=== PATIENT | male | born 1970 | race Caucasian/White ===

== ENCOUNTER 2016-06-15 20:26 | Inpatient (IN) | payer OTHER ==
[~2016-06-15] VITALS: Ht 172.7 cm; Wt 72.6 kg
[~2016-06-15 20:26] MED LIST: ADVAIR DISKUS 21 DSK INH; ALPRAZOLAM1 MG PO; AUGMENTIN 500M500 MG PO; CETIRIZINE HCL10 MG PO; CLOPIDOGREL75 MG PO; COUMADIN 10 MG10 MG PO; COUMADIN 2.5 M2.5 MG PO; COUMADIN10 MG PO; COUMADIN7.5 MG PO; CRESTOR40 MG PO; ENDOCET 325 MG-1 TA1 PO; FLEXERIL10 MG PO; FLOMAX(MONOGRA0.4 MG PO; LIDODERM 5% PAT1 PAT TOP; LOPRESSOR 25MG25 MG PO; NICODERM C14 MG/24 H TD; NICOTINE T7 MG/24 HR TOP; NICOTINE TOP; OXYCODONE5 M1 PO; PERCOCET 325 MG-5 MG PO; PERCOCET 325 MG1 TA2 PO; PRILOSEC 20MG C20 MG PO; PRINIVIL 5MG5 MG PO; ZANAFLEX4 MG PO; ZESTRIL2.5 MG PO
--- NOTE | 2016-06-15 21:01 | NUR ---
PT TO ED FOR INTERMITTENT CP X "A FEW WEEKS" PT HAS SIG HX FOR 4 AK'S, ONE VFIB ARREST IN 2013 AND 5 STENTS. PT REPORTING CP HAS BECOME MORE FREQUENT OVER PAST FEW WEEKS, NOT IMPROVING WITH NITRO "AND IT FEELS DIFFERENT THAN MY NORMAL ANGINA"
--- NOTE | 2016-06-15 21:18 | NUR ---
PT BROUGHT TO RM 9, CHANGED INTO HOSPITAL GOWN AND PUT ON THE MONITOR.
--- NOTE | 2016-06-15 21:25 | ED CARDIAC/CP/PALPITATIONS ---
History of Present Illness General Chief Complaint: Chest Pain Stated Complaint: CHEST PAIN ON AND OFF COUPLE WEEKS PER PT Source: patient, old records Exam Limitations: no limitations Vital Signs & Intake/Output Vital Signs & Intake/Output Vital Signs Date Time Temp Pulse Resp B/P B/P Pulse O2 O2 Flow FiO2 Mean Ox Delivery Rate 06/16 0011 97.4 57 18 111/81 98 06/15 2324 97.2 57 18 110/63 98 06/15 2210 97.1 55 18 108/68 96 06/15 2100 97.4 54 15 111/74 100 Room Air ED Intake and Output 06/16 0000 06/15 1200 Intake Total Output Total Balance Patient 160 lb Weight Weight Reported by Patient Measurement Method Allergies Coded Allergies: Iodinated Contrast Media - Oral and (IODINATED CONTRAST MEDIA - IV DYE) (GI UPSET, VOMITING 05/03/15) Reconcile Medications Acetaminophen (Tylenol Extra Strength) 500 MG TABLET 1 TAB PO PRN PAIN ( Reported) Alprazolam 1 MG TABLET 1 TAB PO DAILY ANXIETY (Reported) Clopidogrel Bisulfate (Clopidogrel) 75 MG TABLET 1 TAB PO DAILY BLOOD THINNER (Reported) Fluticasone Propionate 50 MCG/ACTUATION SPRAY.SUSP 2 SPRAY NASB DAILY ALLERGIES (Reported) Lisinopril 5 MG TABLET 1 TAB PO DAILY BP (Reported) Metoprolol Tartrate 25 MG TABLET 1 TAB PO DAILY HEART/BP (Reported) Montelukast Sodium 10 MG TABLET 1 TAB PO DAILY ALLERGIES (Reported) Nitroglycerin 0.4 MG TAB.SUBL 1 TAB SL AD PRN CHEST PAIN (Reported) 1st sign of attack; may repeat every 5 minutes until relief; if pain persists after 3 tablets in 15 minutes, prompt medical att Oxycodone HCl/Acetaminophen (Percocet 5-325 MG Tablet) 5 MG-325 MG TABLET 1 TAB PO Q6 PRN PAIN (Reported) Rosuvastatin Calcium (Crestor) 20 MG TABLET 1 TAB PO DAILY CHOLESTEROL ( Reported) Warfarin Sodium (Coumadin) 7.5 MG TABLET 1 TAB PO DAILY BLOOD THINNER ( Reported) Core Measure Meds Pre-Hospital coumadin Triage Note: PT TO ED FOR INTERMITTENT CP X "A FEW WEEKS" PT HAS SIG HX FOR 4 CT'S, ONE VFIB ARREST IN 2012 AND 5 STENTS. PT REPORTING CP HAS BECOME MORE FREQUENT OVER PAST FEW WEEKS, NOT IMPROVING WITH NITRO "AND IT FEELS DIFFERENT THAN MY NORMAL ANGINA" Triage Nurses Notes Reviewed? yes Onset: 2 weeks Duration: week(s):, changing over time, continues in ED, intermittent Timing: recent history Quality/Severity: moderate, aching, stabbing Location: substernal Radiation: jaw, arms Activities at Onset: activity, rest Prior Chest Pain/Card Workup: angina, cardiac cath, echocardiography, heart attack Modifying Factors: Improves With: nitroglycerin, rest. Worsens With: exercise. Nitro Today/Relief: 0.4 mg x 2, provided at home, mild relief Aspirin Today: no aspirin today, Coumadin Plavix Associated Symptoms: diaphoresis, dizziness, nausea/vomiting HPI: 2 weeks prior to admission patient complains of episodic waxing and waning substernal chest pain mild to moderate severity resolved with rest and nitroglycerin accompanied with dizziness diaphoresis nausea. 1 day prior to admission pain became more severe taking longer to resolve with lesser effect of nitroglycerin. He denies fever chills vomiting diarrhea abdominal pain shortness of breath headache dysuria rash bleeding. Past History Travel History Traveled to [place] past 21 day No Medical History Any Pertinent Medical History? 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 No Review of Systems Review of Systems Constitutional: Reports: see HPI, malaise, weakness. EENTM: Reports: no symptoms. Respiratory: Reports: no symptoms. Cardiovascular: Reports: see HPI, chest pain. GI: Reports: no symptoms. Genitourinary: Reports: no symptoms. Musculoskeletal: Reports: no symptoms. Skin: Reports: no symptoms. Neurological/Psychological: Reports: no symptoms. Hematologic/Endocrine: Reports: no symptoms. Immunologic/Allergic: Reports: no symptoms. All Other Systems: Reviewed and Negative Physical Exam Physical Exam General Appearance: well developed/nourished, alert, awake, anxious, moderate distress Head: atraumatic, normal appearance Eyes: Bilateral: normal appearance, PERRL, EOMI. Ears, Nose, Throat: normal pharynx, normal ENT inspection Neck: normal inspection, supple, full range of motion, no midline tenderness Respiratory: normal breath sounds, chest non-tender, no respiratory distress, quiet respiration, lungs clear Cardiovascular: regular rate/rhythm, normal peripheral pulses, norml femoral pulses equa Peripheral Pulses: 4+ carotid (R), 4+ carotid (L) Gastrointestinal: normal bowel sounds, soft, non-tender, no organomegaly Back: normal inspection, normal range of motion Extremities: normal inspection, normal capillary refill, normal range of motion, no edema Neurologic/Psych: awake, alert, oriented x 3, normal gait, normal mood/affect, 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 Skin: intact, normal color, warm/dry Lymphatic: no anterior cervical annamaria Core Measures ACS in differential dx? Yes ASA ordered for poss ACS? No-d/t bleeding/risk of Severe Sepsis Present: No Septic Shock Present: No Progress Differential Diagnosis: AMI, costochondritis, hyperkalemia, pneumonia Plan of Care: Orders Procedure Date/time Status Nothing by Mouth 06/16 B Active TROPONIN LEVEL 06/16 1000 Active EKG 06/16 1000 Active TROPONIN LEVEL 06/16 0400 Active PROTHROMBIN TIME 06/16 0400 Active LIPID PANEL 06/16 0400 Active CBC WITHOUT DIFFERENTIAL 06/16 0400 Active BASIC ELECTROLYTES PLUS BUN&CR 06/16 0400 Active EKG 06/16 0400 Active Code Status 06/16 0000 Active Pathway - chart 06/15 2318 Active Patient Data 06/15 2256 Active OXYGEN SETUP (GEN) 06/15 2241 Active Saline Lock 06/15 224 Active Admit to inpatient 06/15 2242 Active Vital Signs 06/15 224 Active Activity/Ambulation 06/15 2241 Active Code Status 06/15 224 Complete Intake & Output 06/15 2137 Active THYROID STIMULATING HORMONE 06/150 Active FREE T4 06/15 2129 Active TROPONIN LEVEL 06/16 2119 Active PROTHROMBIN TIME 06/16 2119 Complete MAGNESIUM 06/16 2119 Active COMPREHENSIVE METABOLIC PANEL 06/16 2119 Active CBC WITHOUT DIFFERENTIAL 06/16 2119 Complete EKG 06/15 2026 Active TRC EVALUATION (GEN) 06/15 UNK Active Pathway - chart 06/15 UNK Active House Staff 06/15 UNK Active Lab Add-on Test 06/15 UNK Active VTE Mechanical Prophylaxis 06/15 UNK Active Vital Signs 06/15 UNK Active ECHOCARDIOGRAM 06/15 UNK Active Current Medications Sig/Danisha Start time Last Medication Dose Stop Time Status Admin Atorvastatin Calcium 80 MG 1700 06/17 1700 UNVr (Lipitor) Alprazolam 1 MG DAILY 06/16 1000 UNVr (Xanax) 06/23 0959 Clopidogrel Bisulfate 75 MG DAILY 06/16 1000 UNVr (Plavix) Fluticasone 2 SPRAY DAILY 06/16 1000 UNVr Propionate (Flonase) Lisinopril 5 MG DAILY 06/16 1000 UNVr (Prinivil) Metoprolol Tartrate 25 MG DAILY 06/16 1000 UNVr (Lopressor) Montelukast Sodium 10 MG DAILY 06/16 1000 UNVr (Singulair) Multivitamins 1 TAB DAILY 06/16 1000 AC (Theragran Vitamins) Nitroglycerin 0.4 MG Q 5 MINUTES X 3 DO.. 06/15 2345 UNVr (Nitrostat) Acetaminophen 650 MG Q6P PRN 06/150 AC (Tylenol) Acetaminophen/ 1 TAB Q6P PRN 06/15 2329 AC Hydrocodone Bitart (Vicodin) Morphine Sulfate 2 MG Q4P PRN 06/15 2329 AC (Morphine) Laboratory Tests 06/15/162129: Anion Gap 9, Estimated GFR > 60, BUN/Creatinine Ratio 12.5, Glucose 96, Calcium 8.9, Magnesium 2.0, Total Bilirubin 0.7, AST 23, ALT 48, Alkaline Phosphatase 40 , Troponin I < 0.01, Total Protein 6.5, Albumin 4.0, Globulin 2.5, Albumin/ Globulin Ratio 1.6, TSH Pending, Free T4 Pending, PT 30.2 H, INR 2.91 H, CBC w Diff NO MAN DIFF REQ, RBC 4.73, MCV 90.5, MCH 30.7, RDW 14.2, MPV 8.5, Gran % 52.6, Lymphocytes % 33.3, Monocytes % 10.9 H, Eosinophils % 2.2, Basophils % 1.0, Absolute Granulocytes 3.5, Absolute Lymphocytes 2.2, Absolute Monocytes 0.7 H, Absolute Eosinophils 0.1, Absolute Basophils 0.1, PUBS MCHC 33.9 Diagnostic Imaging: Viewed by Me: Radiology Read. Discussed w/RAD: Radiology Read. CXR Impression: no acute abnormality, no infiltrates Initial ED EKG: normal axis, normal intervals, normal p-waves, normal QRS complex, normal sinus rhythm, nonspecific ST T wave chg Prior EKG: changed Rhythm Strip: normal sinus rhythm Departure Departure Disposition: STILL A PATIENT Condition: Stable Clinical Impression Primary Impression: Unstable angina Referrals: ROSALEE GAYLE DO (PCP/Family) Departure Forms: Customer Survey General Discharge Information Admission Note Spoke With: CHEN GARCIA MD Documentation of Exam: Documentation of any treatments & extenuating circumstances including Concerns Regarding Discharge (functional status, medication knowledge or non-compliance, living conditions, etc.) that warrant an admission rather than observation: Serial EKG serial lab exam cardiac monitoring supplemental oxygen cardiology evaluation medication adjustment continuing care discharge planning Critical Care Note Critical Care Note Critical Care Time: 30-74 min
--- NOTE | 2016-06-15 21:35 | NUR ---
BLOOD DRAWN AND SENT TO LAB SST, LAV, BLUE, GÓMEZ, PINK
--- NOTE | 2016-06-15 21:38 | NUR ---
PT C/O 6 CP. PT MEDICTAED WITH NITRO PER ORDER
[2016-06-15 21:42] LABS: ABSOLUTE BASOPHIL COUNT 0.1 /CUMM (0.0-0.2); ABSOLUTE EOSINOPHIL COUNT 0.1 /CUMM (0.0-0.7); ABSOLUTE GRANULOCYTE CT 3.5 /CUMM (1.4-6.5); ABSOLUTE LYMPH COUNT 2.2 /CUMM (1.2-3.4); ABSOLUTE MONOCYTE COUNT 0.7 /CUMM (0.10-0.60); EOSINOPHIL % 2.2 % (0-5); GRANULOCYTE % 52.6 % (42.2-75.2); HEMATOCRIT 42.8 % (42-52); MEAN CORPUSCULAR HGB 30.7 PG (27.0-31.0); MEAN CORPUSCULAR HGB CONC 33.9 G/DL (33.0-37.0); MEAN CORPUSCULAR VOLUME 90.5 FL (80.0-94.0); MEAN PLATELET VOLUME 8.5 FL (7.4-10.4); PLATELET COUNT 197 /CUMM (130-400); RBC DISTRIBUTION WIDTH 14.2 % (11.5-14.5); RED BLOOD CELL CT 4.73 /CUMM (4.70-6.10); WHITE BLOOD CELL COUNT 6.6 /CUMM (4.8-10.8)
[2016-06-15 21:47] LABS: PT 30.2 SEC (9.4-12.5)
[2016-06-15] MEDS ORDERED: CLOPIDOGREL75 M1 PO (21:52)
[2016-06-15] MEDS ORDERED: LISINOPRIL5 M1 PO (21:52)
[2016-06-15] MEDS ORDERED: MONTELUKAST SOD10 M1 PO (21:52)
[2016-06-15] MEDS ORDERED: ALPRAZOLAM1 M2 PO (21:52)
[2016-06-15] MEDS ORDERED: CRESTOR20 M2 PO (21:53)
[2016-06-15] MEDS ORDERED: FLUTICASONE PRO16 GM NASB (21:53)
[2016-06-15] MEDS ORDERED: METOPROLOL TART25 M1 PO (21:53)
[2016-06-15] MEDS ORDERED: NITROGLYCERIN0.4 M1 SL (21:54)
[2016-06-15] MEDS ORDERED: COUMADIN7.5 M1 PO (21:54)
[2016-06-15] MEDS ORDERED: TYLENOL EXTRA500 M2 PO (21:54)
--- NOTE | 2016-06-15 21:54 | RADIOLOGY REPORT ---
EXAMINATION: XR PORTABLE CHEST CLINICAL INFORMATION: Chest pain COMPARISON: 07/25/2013 TECHNIQUE: Portable AP view of the chest was obtained. FINDINGS: No acute finding. No obvious failure or infiltrate. There is no effusion. Lung byrd are grossly clear. Some calcification in the aortic arch. No effusion. IMPRESSION: No convincing evidence for an acute process.
[2016-06-15] MEDS ORDERED: PERCOCET 5-3251 EACH PO (21:56)
--- NOTE | 2016-06-15 22:10 | NUR ---
PT STILL C/O 5/10 PAIN. PT MEDICATED WITH NITRO PER ORDER.
--- NOTE | 2016-06-15 22:54 | NUR ---
PT STILL C/O 5/10 PAIN. PT MEDICATED WITH MORPHINE PER ORDER. PT BP 100/56 AFTER MORPHINE. NITRO PASTE HELD DUE TO BP
--- NOTE | 2016-06-15 22:59 | History & Physical ---
TORIBIO MARX,[facility] 06/15/16 3404: General Information and HPI MD Statement: I have seen and personally examined SCOTT OWEN and documented this H&P. The patient is a 46 year old M who presented with a patient stated chief complaint of chest pain Source of Information: patient Exam Limitations: no limitations History of Present Illness: This is a 46-year-old male who has past medical history of coronary artery disease status post stent placement, status post V. tach/V. fib in 2012, diverticluitis, renal stones, hyperlipidemia, hypertension, GERD, presents to the ED with c/o intermittent chest pain. As per patient he has been having off and on mid sternal, non-radiating, exertional, non pleuritic, non positional sharp chest pain lasting for a couple to ten seconds for a couple of days now. Chest pain sometimes is assosciated with tingling and numbness like sensation in b/l upper ext. Today his chest pain episodes became more frequent and he had a feeling that he was just not fine and decided to come to ER for further evaluation. No complains of SOB, any new changes in exercise tolerance, denies any nocturnal dyspnea or orthopnea. He has been having problems with his molar tooth and has had pain for which he was to get evaluated tommorow. Denies any nausea, vomiting, abdominal pain, any urinary symptoms, any recent changes in bowel movements. 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 Last echocardiogram was in 2013 which showed evidence of dissection fraction of 55% Allergies/Medications Allergies: Coded Allergies: Iodinated Contrast Media - Oral and (IODINATED CONTRAST MEDIA - IV DYE) (GI UPSET, VOMITING 05/03/15) Home Med list Acetaminophen (Tylenol Extra Strength) 500 MG TABLET 1 TAB PO PRN PAIN ( Reported) Alprazolam 1 MG TABLET 1 TAB PO DAILY ANXIETY (Reported) Aspirin (Aspirin*) 81 MG TAB.CHEW 81 MG PO DAILY unstable angina Atorvastatin Calcium 80 MG TABLET 80 MG PO 1700 cholestrol Clopidogrel Bisulfate (Clopidogrel) 75 MG TABLET 1 TAB PO DAILY BLOOD THINNER (Reported) Fluticasone Propionate 50 MCG/ACTUATION SPRAY.SUSP 2 SPRAY NASB DAILY ALLERGIES (Reported) Heparin (Heparin-1/2NS 25,000 Units/500) 25,000 UNIT/500 ML (50 UNIT/ML) IV.SOLN 1 BAG IV CONTINOUS INFUSION heart health Lisinopril 5 MG TABLET 1 TAB PO DAILY BP (Reported) Metoprolol Tartrate 25 MG TABLET 1 TAB PO DAILY HEART/BP (Reported) Montelukast Sodium 10 MG TABLET 1 TAB PO DAILY ALLERGIES (Reported) Nitroglycerin 0.4 MG TAB.SUBL 1 TAB SL AD PRN CHEST PAIN (Reported) 1st sign of attack; may repeat every 5 minutes until relief; if pain persists after 3 tablets in 15 minutes, prompt medical att Oxycodone HCl/Acetaminophen (Percocet 5-325 MG Tablet) 5 MG-325 MG TABLET 1 TAB PO Q6 PRN PAIN (Reported) Warfarin Sodium (Coumadin) 7.5 MG TABLET 1 TAB PO DAILY BLOOD THINNER ( Reported) on hold due to cath please restart after coronary intervention for hx of CVA in setting of LV thrombus Compliance With Home Meds: GOOD Past History Travel History Traveled to [place] past 21 day No Medical History Blood Transfusion Hx: Yes Neurological: CVA, seizure EENT: MENIERE'S DISEASE Cardiovascular: [place] X4 Respiratory: COPD Gastrointestinal: diverticulitis, "BOWEL BLOCKAGE" Hepatic: NONE Renal: KIDNEY STONES Musculoskeletal: NECK FRACTURE Psychiatric: NONE Endocrine: NONE Blood Disorders: NONE AUTO TECH/Reproductive: NONE History of MRSA: No History of VRE: No History of CDIFF: No Surgical History Surgical History: hernia repair-umbilical, 4 ANGIOPLASTY 3 STENT PLACEMENTS BOWEL BLOCKAGE REPAIR Past Family/Social History Family History Relations & Conditions if any MOTHER FH: heart disease FATHER FH: myocardial infarction Psychosocial History Where do you live? Home Who Do You Live With? self Services at Home: None Primary Language: Qatari Smoking Status: Current Everyday Smoker ETOH Use: denies use Illicit Drug Use: denies illicit drug use Functional Ability ADLs Independent: dressing, eating, toileting, bathing. Ambulation: independent IADLs Independent: shopping, housework, finances, food prep, telephone, transportation , medication admin. Review of Systems Review of Systems Constitutional: Reports: see HPI. Exam & Diagnostic Data Last 24 Hrs of Vital Signs/I&O Vital Signs Date Time Temp Pulse Resp B/P B/P Pulse O2 O2 Flow FiO2 Mean Ox Delivery Rate 06/16 0011 97.4 57 18 111/81 98 06/15 2324 97.2 57 18 110/63 98 06/15 2210 97.1 55 18 108/68 96 06/15 2100 97.4 54 15 111/74 100 Room Air Intake & Output 06/16 0800 06/16 0000 06/15 1600 Intake Total Output Total Balance Patient 72.575 kg 72.575 kg Weight Weight Reported by Patient Reported by Patient Measurement Method Physical Exam General Appearance Alert, Oriented X3, Cooperative, No Acute Distress HEENT Atraumatic, PERRLA Neck Supple, No JVD Cardiovascular Regular Rate, Normal S1, Normal S2, No Murmurs Lungs Clear to Auscultation, Normal Air Movement Abdomen Normal Bowel Sounds, Soft, No Tenderness Extremities No Clubbing, No Cyanosis, No Edema Last 24 Hrs of Labs/Jim: Laboratory Tests 06/15/160: Anion Gap 9, Estimated GFR > 60, BUN/Creatinine Ratio 12.5, Glucose 96, Calcium 8.9, Magnesium 2.0, Total Bilirubin 0.7, AST 23, ALT 48, Alkaline Phosphatase 40 , Troponin I < 0.01, Total Protein 6.5, Albumin 4.0, Globulin 2.5, Albumin/ Globulin Ratio 1.6, TSH Pending, Free T4 Pending, PT 30.2 H, INR 2.91 H, CBC w Diff NO MAN DIFF REQ, RBC 4.73, MCV 90.5, MCH 30.7, RDW 14.2, MPV 8.5, Gran % 52.6, Lymphocytes % 33.3, Monocytes % 10.9 H, Eosinophils % 2.2, Basophils % 1.0, Absolute Granulocytes 3.5, Absolute Lymphocytes 2.2, Absolute Monocytes 0.7 H, Absolute Eosinophils 0.1, Absolute Basophils 0.1, PUBS MCHC 33.9 Diagnostic Data EKG Results Normal sinus rhythm, heart rate 60, QTC 368, Q waves in lead 1 and aVL, poor R- wave progression CXR Results No acute cardiopulmonary pathology Assessment/Plan Assessment: This is a 46-year-old male who has past medical history of coronary artery disease status post stent placement, status post V. tach/V. fib in 2012, diverticluitis, renal stones, hyperlipidemia, hypertension, GERD, presents to the ED with c/o intermittent chest pain. As per patient he has been having off and on mid sternal, non-radiating, exertional, non pleuritic, non positional sharp chest pain lasting for a couple to ten seconds for a couple of days now. Chest pain sometimes is assosciated with tingling and numbness like sensation in b/l upper ext. Today his chest pain episodes became more frequent and he had a feeling that he was just not fine and decided to come to ER for further evaluation. No complains of SOB, any new changes in exercise tolerance, denies any nocturnal dyspnea or orthopnea. He has been having problems with his molar tooth and has had pain for which he was to get evaluated tommoro. Vitals upon presentation temperature 97.4, pulse 54, respiratory rate 15, blood pressure 111/74, satting well in high 90s on room air. Pertinent labs WBC 6.6, H&H 14.5 and 42.8, platelet count 197, sodium 135, potassium 4.2, creatinine 0.8 and BUN 10, initial troponins negative, INR 2.91 Chest x-ray did not show any evidence of acute cardiopulmonary disease. Chest pain/unstable angina: Continuous cardiac monitoring to rule out any arrhythmias. Continue home dose of lisinopril, Lopressor, clopidogrel, along with aspirin. Cardiology has been consulted, we keep patient nothing by mouth overnight for possible cath in the morning Nitroglycerin and/or morphine for chest pain as needed. Echocardiogram. History of anxiety: Continue home dose of alprazolam. Diet: The patient nothing by mouth in anticipation of cardiac cath in the morning Patient is full code. As Ranked By This Provider Problem List: 1. Unstable angina Core Measures/Miscellaneous Acute Coronary Syndrome ACS Diagnosis: Yes Last Known EF % 55 ASA W/I 24hr of admit Yes Beta-Ioana W/I 24hrs Yes LDL assessed W/I 24 hrs Yes Currently on Statin Yes Cerebrovascular Accident CVA/TIA Diagnosis: No Congestive Heart Failure CHF Diagnosis: No Venous Thromboembolism VTE Risk Factors: Acute medical illness, Age > 40 [address] [facility] VTE prophylaxis d/t: No contraindications No VTE Pharm Prophylaxis d/t: No contraindications, Medical contraindication VTE Diagnosis: No VTE Type: NONE VTE Confirmed by (Test): NONE Severe Sepsis Severe Sepsis Present: No Septic Shock Septic Shock Present: No Miscellaneous Documentation Attending Case Discussed With: CHEN GARCIA MD Primary Care Physician: ROSALEE GAYLE DO Patient sees these Specialists . 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 According to the patient his was in his usual state of health until last week or so, when he started to experience some dull ache, feeling tired and numbness and tingling in his arms. He states that he also started to experience some dull, substernal chest pain that she grades as a 5-6 out of 10 present on exertion but also at rest. In addition, he also had some sharp pains that he grades as a DNR of 10 that would last for about a second 2 has maximum of like 10 seconds. He states that his symptoms got worse today which is why he presented to the ER. He denies any chest pain on palpation, fever, chills, having lifted anything heavy recently, any change in chest pain related to posture forward breathing. He does however endorse a decreased appetite for the past few days, denies any shortness of breath and states that he cannot really comment on PND or orthopnea since he lies on his side given history of back issues. Of note is been feeling a little dizzy and foggy when he gets up in the morning for the past few days and states that these symptoms have occurred every time he's had an [place] which is why he decided to present to the ER. Of note he took 2 nitroglycerin tablets this morning which helped alleviate his dull ache however did not do much for the sharp pain. He endorses recent stress in life, and states he is currently in the process of relocating. He denies any headache, abdominal pain, heartburn, nausea, vomiting, constipation, diarrhea, lower extremity swelling. Surgical history is pertinent for an umbilical hernia repair, angioplasty. He is not allergic to any medications that he knows of. Family history is pertinent for coronary artery disease in his mother at the age of 51 years. He follows up with Dr. Onofre and Dr. Pérez for COPD and was told that he has borderline COPD. Of note he is a current smoker currently smoking about 3 cigarettes a day. He's been smoking for the past 30 years at least 2 packs per day and has now cut down to half a pack or less. He denies drinking alcohol and or other recreational drug use. Vitals on admission, BP: 111/74, RR: 15, Pulse: 54, afebrile and O2 sat of 100% on RA. On physical exam he is alert and oriented 3, in no acute distress sitting comfortably in bed. HEENT revealed PERRLA, moist mucous members. Examination of the neck did not reveal any JVD, cervical lymphadenopathy. Cardiovascular exam was pertinent for normal S1, S2, no murmurs rubs or gallops appreciated. Chest was clear to auscultation bilaterally. Abdominal exam was benign abdomen soft, nontender, nondistended with normal bowel sounds in all 4 quadrants. Examination of lower extremities did not reveal any edema. Neuro exam was grossly unremarkable. Labs pertinent for WBC: 6,600, H&H: 14.5/42.8, platelet count of 197,000. Serum chemistries pertinent for Na: 137, K: 4.2, HCO3: 22, A, BUN: 10, Cr: 0.8, magnesium: 2.0, LFTs' unremarkable with an AST/ALT: 23/48, alk phosp: 40, troponin <0.01, INR: 2.91. CXR: No acute pathology. EKG revealed normal sinus rhythm, heart rate of 66, NM interval of 164, Q waves in 1 and aVL unchanged from prior, poor R-wave progression, no ST-T changes Last echocardiogram in 04/11 showed apex hypokinetic. Borderline normal left ventricular ejection fraction estimated at 50-55% Nuclear stress test done in 08/11 showed no EKG evidence of stress induced myocardial ischemia. Assessment and Plan: Admit patient to Telemetry # Typical Chest pain - Most liekly UA given negative troponin - His VINNY score is 2. - Trend troponins and EKG at 4:00AM and 10:00AM - Echocardiogram to r/o RWMA. - Patient already has a therapeutic INR, will mast off starting on Heparin or dosing coumadin - NPO after midnight for cardiac cath in AM - Give ASA 325mg x1, start on Atorvastatin 80mg daily. - Continue metoprolol, Lisinopril, plavix, Nitrostat SL 0.4 mg PRN for chest pain - Lipid panel in AM - Cardiology consult with DR. Onofre in AM. #Anxiety - Continue alprazolam - DVT Prophylaxis - On Coumadin - Diet - NPO after MN for cath in AM - Code Status - Full Code CHEN GARCIA 06/16/16 0318: Attending MD Review Statement Attending Statement Attending MD Statement: examined this patient, discuss w/resident/PA/ELECTRONIC TECH, agreed w/resident/PA/ELECTRONIC TECH, reviewed EMR data (avail), reviewed images, amended to note Attending Assessment/Plan: CC: Chest pain PMH: CAD [place] S/P PCI*2 (2012, 2014), history of V. fib arrest, HTN, history of left ventricular thrombus, CVA, GERD, anxiety, current smoker Patient came to ER for persistent chest pain. Pain is substernal, nonradiating, non-pleuritic, associated with occasional diaphoresis , present at rest , more greatly relieved by nitroglycerin. The pain was persistent since last 1-2 days so he came to ER. 2 weeks back patient had episodic waxing and waning substernal chest pain mild to moderate severity resolved with rest and nitroglycerin accompanied with dizziness diaphoresis nausea. Eventually that pain became persistent. He denies fever, chills, vomiting, diarrhea, abdominal pain, shortness of breath, headache, dysuria, rash bleeding. Patient had residual left upper extremity weakness with tingling numbness since his previous stroke which has not changed much, patient also has baseline dyspnea on exertion which has not changed much. Vitals: Afebrile, pulse in 50s, RR 18, blood pressure 110/70 saturating well room air. On exam: A O 3, cooperative, no acute distress, neck supple, no JVD elevation, no lymphadenopathy, mucosa moist, no focal neurological deficit, no dependent edema, no obvious skin rashes or inflammation CVS: S1-S2, RRR. RS: Clear to auscultate bilaterally. Abdomen: Soft, NT, ND, bowel sounds present. Labs: CBC, BMP, LFT, troponin unremarkable, INR 2.9 CXR: No acute processes EKG: No acute changes A and P Patient has extensive CAD history, currently presenting with unstable angina. - Admit to telemetry - Serial troponin and EKG - Aspirin 325 - Informed cardiology - 2-D echo in a.m. - Nothing by mouth after midnight - Continue his home medications of Plavix, lisinopril, metoprolol, statin. Hold warfarin according to cardiology recommendation, continue Nitropatch.
--- NOTE | 2016-06-15 23:23 | NUR ---
PT STILL C/O 05/05 PAIN. BP 110/63. NITRO PASTE APPLED. NSR ON THE MONITOR. WILL CONTINUE TO MONITOR.
--- NOTE | 2016-06-15 23:39 | NUR ---
BED ASSIGNED [id number]
--- NOTE | 2016-06-15 23:43 | NUR ---
HOUSE STAFF AT BEDSIDE
--- NOTE | 2016-06-16 00:23 | NUR ---
PT A/O X4. RESP UNLABORED. NSR ON THE MONITOR. REPORTS PAIN 2/10.
--- NOTE | 2016-06-16 00:28 | Discharge Summary ---
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 According to the patient his was in his usual state of health until last week or so, when he started to experience some dull ache, feeling tired and numbness and tingling in his arms. He states that he also started to experience some dull, substernal chest pain that she grades as a 5-6 out of 10 present on exertion but also at rest. In addition, he also had some sharp pains that he grades as a DNR of 10 that would last for about a second 2 has maximum of like 10 seconds. He states that his symptoms got worse today which is why he presented to the ER. He denies any chest pain on palpation, fever, chills, having lifted anything heavy recently, any change in chest pain related to posture forward breathing. He does however endorse a decreased appetite for the past few days, denies any shortness of breath and states that he cannot really comment on PND or orthopnea since he lies on his side given history of back issues. Of note is been feeling a little dizzy and foggy when he gets up in the morning for the past few days and states that these symptoms have occurred every time he's had an ND which is why he decided to present to the ER. Of note he took 2 nitroglycerin tablets this morning which helped alleviate his dull ache however did not do much for the sharp pain. He endorses recent stress in life, and states he is currently in the process of relocating. He denies any headache, abdominal pain, heartburn, nausea, vomiting, constipation, diarrhea, lower extremity swelling. Surgical history is pertinent for an umbilical hernia repair, angioplasty. He is not allergic to any medications that he knows of. Family history is pertinent for coronary artery disease in his mother at the age of 51 years. He follows up with Dr. Onofre and Dr. Pérez for COPD and was told that he has borderline COPD. Of note he is a current smoker currently smoking about 3 cigarettes a day. He's been smoking for the past 30 years at least 2 packs per day and has now cut down to half a pack or less. He denies drinking alcohol and or other recreational drug use. Vitals on admission, BP: 111/74, RR: 15, Pulse: 54, afebrile and O2 sat of 100% on RA. On physical exam he is alert and oriented 3, in no acute distress sitting comfortably in bed. HEENT revealed PERRLA, moist mucous members. Examination of the neck did not reveal any JVD, cervical lymphadenopathy. Cardiovascular exam was pertinent for normal S1, S2, no murmurs rubs or gallops appreciated. Chest was clear to auscultation bilaterally. Abdominal exam was benign abdomen soft, nontender, nondistended with normal bowel sounds in all 4 quadrants. Examination of lower extremities did not reveal any edema. Neuro exam was grossly unremarkable. Labs pertinent for WBC: 6,600, H&H: 14.5/42.8, platelet count of 197,000. Serum chemistries pertinent for Na: 137, K: 4.2, HCO3: 22, A, BUN: 10, Cr: 0.8, magnesium: 2.0, LFTs' unremarkable with an AST/ALT: 23/48, alk phosp: 40, troponin <0.01, INR: 2.91. CXR: No acute pathology. EKG revealed normal sinus rhythm, heart rate of 66, MS interval of 164, Q waves in 1 and aVL unchanged from prior, poor R-wave progression, no ST-T changes Last echocardiogram in 04/11 showed apex hypokinetic. Borderline normal left ventricular ejection fraction estimated at 50-55% Nuclear stress test done in 08/11 showed no EKG evidence of stress induced myocardial ischemia. He was admitted to Telemetry,a nd the following problems were addressed: # Unstable angina - Most liekly Unstable Angina given negative troponin, symptoms at rest and exertion, and slight relief of symptoms with Nitro. His VINNY score is 2. Patient had a therapeutic INR on admission anticagulation for hx of LV thrombus resulting in stroke. Patient monitored on telemetry, Warfarin held and once INR decreased to 2 started on iv heparin drip in anticipation of cardiac cath. On EKG patient noted anterion Q wave but noted new evolving T wave inversion in V2- V4 suggesting of ischemia. Patient started on PLavix, continued Aspirin and Statin dose adjusted.Patient is going to be transferred to [place] for cardiac cath . He has been NPO after midnight for cardiac cath. He was given ASA 325mg x1, and started on Atorvastatin 80mg daily, and was continued on Metoprolol, Lisinopril, plavix, Nitrostat SL 0.4 mg PRN for chest pain. #Anxiety - He was continued on alprazolam. Allergies: Coded Allergies: Iodinated Contrast Media - Oral and (IODINATED CONTRAST MEDIA - IV DYE) (GI UPSET, VOMITING 05/03/15) Significant Procedures: SERVICE DATE: 06/15/16 EXAM TYPE: RAD - XRY-PORTABLE CHEST XRAY FINDINGS: No acute finding. No obvious failure or infiltrate. There is no effusion. Lung byrd are grossly clear. Some calcification in the aortic arch. No effusion. IMPRESSION: No convincing evidence for an acute process. ECHO: ( 06/16/16) 1. Mild aortic sclerosis is present with no valvular stenosis or insufficiency. 2. Mitral leaflet thickening is present with minimal to mild mitral insufficiency and mild left atrial enlargement. 3. There is no pericardial fluid present. 4. The left ventricular chamber size is normal. THere is marked hypokinesia of the mid to distal septum and anteroapical segments with akinesia of the apex and an ejection fraction of approximately 40-45%. 5. The right heart chambers are upper normal in size with minimal to mild tricuspid insufficiency. The RV systolic pressure was not accurately assessed. 6. A false tendon is present in the mid left ventricle. Pertinent Lab Results: Laboratory Tests 06/19/16 0618: PT Cancelled, INR Cancelled 06/19/16 0618: Anion Gap 9, Estimated GFR > 60, BUN/Creatinine Ratio 15.0, PT 10.7, INR 1.02, APTT 57 H, CBC w Diff NO MAN DIFF REQ, RBC 4.74, MCV 91.8, MCH 30.8, RDW 13.8, MPV 8.9, Gran % 49.7, Lymphocytes % 37.5, Monocytes % 9.2, Eosinophils % 2.9, Basophils % 0.7, Absolute Granulocytes 3.3, Absolute Lymphocytes 2.5, Absolute Monocytes 0.6, Absolute Eosinophils 0.2, Absolute Basophils 0, PUBS MCHC 33.6 06/18/16 1840: APTT 56 H 06/18/16 1130: APTT 45 H 06/18/16 0330: APTT > 120 *H 06/17/16 2025: APTT 43 H 06/17/16 1800: APTT Cancelled 06/17/16 1426: Urine Opiates Screen > 4000.00 H, Methadone Screen < 40, Barbiturate Screen < 60, Ur Phencyclidine Scrn < 6.00, Amphetamines Screen < 100, U Benzodiazepines Scrn < 85, Urine Cocaine Screen < 50, Urine Cannabis Screen > 80.00 H 06/17/16 0620: Anion Gap 10, Estimated GFR > 60, BUN/Creatinine Ratio 17.5, PT 16.2 H, INR 1.55 H 06/16/16 1628: Troponin I < 0.01 06/16/16 1055: Troponin I < 0.01 Laboratory Tests 06/150 Chemistry Sodium (137 - 145 mmol/L) 135 L Potassium (3.5 - 5.1 mmol/L) 4.2 Chloride (98 - 107 mmol/L) 104 Carbon Dioxide (22 - 30 mmol/L) 22 Anion Gap (5 - 16) 9 BUN (9 - 20 mg/dL) 10 Creatinine (0.7 - 1.2 mg/dL) 0.8 Estimated GFR (>60 ml/min) > 60 BUN/Creatinine Ratio (7 - 25 %) 12.5 Glucose (65 - 99 mg/dL) 96 Calcium (8.4 - 10.2 mg/dL) 8.9 Magnesium (1.6 - 2.3 mg/dL) 2.0 Total Bilirubin (0.2 - 1.3 mg/dL) 0.7 AST (17 - 59 U/L) 23 ALT (21 - 72 U/L) 48 Alkaline Phosphatase (< 127 U/L) 40 Troponin I (<0.11 ng/ml) < 0.01 Total Protein (6.3 - 8.2 g/dL) 6.5 Albumin (3.5 - 5.0 g/dL) 4.0 Globulin (1.9 - 4.2 gm/dL) 2.5 Albumin/Globulin Ratio (1.1 - 2.2 %) 1.6 TSH (0.270 - 4.200 uIU/mL) 2.950 Free T4 (0.64 - 1.79 ng/dL) 0.89 Coagulation PT (9.4 - 12.5 SEC) 30.2 H INR (0.90 - 1.17) 2.91 H Hematology CBC w Diff NO MAN DIFF REQ WBC (4.8 - 10.8 /CUMM) 6.6 RBC (4.70 - 6.10 /CUMM) 4.73 Hgb (14.0 - 18.0 G/DL) 14.5 Hct (42 - 52 %) 42.8 MCV (80.0 - 94.0 FL) 90.5 MCH (27.0 - 31.0 PG) 30.7 RDW (11.5 - 14.5 %) 14.2 Plt Count (130 - 400 /CUMM) 197 MPV (7.4 - 10.4 FL) 8.5 Gran % (42.2 - 75.2 %) 52.6 Lymphocytes % (20.5 - 51.1 %) 33.3 Monocytes % (1.7 - 9.3 %) 10.9 H Eosinophils % (0 - 5 %) 2.2 Basophils % (0.0 - 2.0 %) 1.0 Absolute Granulocytes (1.4 - 6.5 /CUMM) 3.5 Absolute Lymphocytes (1.2 - 3.4 /CUMM) 2.2 Absolute Monocytes (0.10 - 0.60 /CUMM) 0.7 H Absolute Eosinophils (0.0 - 0.7 /CUMM) 0.1 Absolute Basophils (0.0 - 0.2 /CUMM) 0.1 PUBS MCHC (33.0 - 37.0 G/DL) 33.9 Disposition Summary Disposition Principal Diagnosis: 1. Unstable angina Additional Diagnosis: CAD s/p 5 PCI VFib V-tach at rest in April of 2012 Hx of mural thrombus (on Coumadin) Ischemic CVA, Diverticluitosis Renal stones Hyperlipidemia Hypertension GERD Discharge Disposition: other general hospital Discharge Instructions General Discharge Information Code Status: Full Code Patient's Diet: NPO Patient's Activity: As tolerated Follow-Up Instructions/Appts: Please F/U with your PCP in one week. Please F/U with your apartment leasing consultant in one week. Medications at Discharge Discharge Medications: Stop taking the following medications: Rosuvastatin Calcium (Crestor) 20 MG TABLET ORAL DAILY Qty = 30 Continue taking these medications: Clopidogrel Bisulfate (Clopidogrel) 75 MG TABLET 1 Tablet ORAL DAILY Qty = 30 Comments: Last Taken:06/16/16 Time:1000 Montelukast Sodium (Montelukast Sodium) 10 MG TABLET 1 Tablet ORAL DAILY Qty = 30 Comments: Last Taken:06/16/16 Time:1000 Alprazolam (Alprazolam) 1 MG TABLET 1 Tablet ORAL DAILY Qty = 30 Comments: Last Taken:06/15/16 Time:1000 Lisinopril (Lisinopril) 5 MG TABLET 1 Tablet ORAL DAILY Qty = 90 Comments: Last Taken:06/16/16 Time:1000 Metoprolol Tartrate (Metoprolol Tartrate) 25 MG TABLET 1 Tablet ORAL DAILY Qty = 180 Fluticasone Propionate (Fluticasone Propionate) 50 MCG/ACTUATION SPRAY.SUSP 2 [place] Both sides of nose DAILY Qty = 16 Comments: Last Taken:06/16/16 Time:1000 Nitroglycerin (Nitroglycerin) 0.4 MG TAB.SUBL 1 Tablet SUBLINGUAL As Directed as needed for CHEST PAIN Qty = 100 Instructions: 1st sign of attack; may repeat every 5 minutes until relief; if pain persists after 3 tablets in 15 minutes, prompt medical att Comments: NOT GIVEN Warfarin Sodium (Coumadin) 7.5 MG TABLET 1 Tablet ORAL DAILY Instructions: on hold due to cath please restart after coronary intervention for hx of CVA in setting of LV thrombus Comments: NOT GIVEN Acetaminophen (Tylenol Extra Strength) 500 MG TABLET 1 Tablet ORAL as needed for PAIN Comments: NOT GIVEN Oxycodone HCl/Acetaminophen (Percocet 5-325 MG Tablet) 5 MG-325 MG TABLET 1 Tablet ORAL EVERY SIX HOURS as needed for PAIN Comments: NOT GIVEN Start taking the following new medications: Aspirin (Aspirin*) 81 MG TAB.CHEW 81 Milligram ORAL DAILY Qty = 30 No Refills Atorvastatin Calcium (Atorvastatin Calcium) 80 MG TABLET 80 Milligram ORAL 5 PM Days = 30 No Refills Comments: Last Taken:06/15/16 Time:1700 Copies To: PILO GAYLE DO, MDJenifer; AVELINA MARX,ROBIN Attending MD Review Statement Documenting Attending: MULU MARX,SHEILA
[2016-06-16] MEDS ORDERED: ATORVASTATIN CA80 M1 PO (01:12)
--- NOTE | 2016-06-16 01:17 | Patient Discharge Instructions ---
Discharge Instructions General Discharge Information You were seen/treated for: - Angina Watch for these problems: sudden increased in chest pain, shortness of breath. Special Instructions: Please F/U with your primary care physician in one week. Please F/U with your nuclear medicine technologist in one week. Please take your medications regularly Diet Recommended Diet: Heart Healthy Activity Activity Self Limited: Yes Acute Coronary Syndrome Inclusion Criteria At DC or during hospital stay patient has or had the following: ACS DIAGNOSIS Yes Discharge Core Measures Meds if any: Prescribed or Continued at Discharge CODY/ARB if EF <40% Yes Aspirin Yes Beta-Ioana Yes Statin Yes Meds if any: NOT Prescribed or Continued at Discharge Congestive Heart Failure Inclusion Criteria At DC or during hospital stay patient has or had the following: CHF DIAGNOSIS No Discharge Core Measures Meds if any: Prescribed or Continued at Discharge Meds if any: NOT Prescribed or Continued at Discharge Cerebrovascular accident Inclusion Criteria At DC or during hospital stay patient has or had the following: CVA/TIA Diagnosis No Discharge Core Measures Meds if any: Prescribed or Continued at Discharge Meds if any: NOT Prescribed or Continued at Discharge Venous thromboembolism Inclusion Criteria VTE Diagnosis No VTE Type NONE VTE Confirmed by (Test) NONE Discharge Core Measures - Per Current guidelines, there needs to be overlap - treatment for the first 5 days of Warfarin therapy. - If discharged on Warfarin prior to 5 days of - overlap therapy, the patient will need to be - assessed for post discharge needs including - *Post discharge parental anticoagulation - *Warfarin and/or parental anticoagulation education - *Follow up date to check INR post discharge At least 5 days overlap therapy as Inpatient No Meds if any: Prescribed or Continued at Discharge Note: Overlap Therapy is Warfarin and Anticoagulant Meds if any: NOT Prescribed or Continued at Discharge
--- NOTE | 2016-06-16 01:47 | NUR ---
PT ARRIVED TO FLOOR APPX 0040. VSS WITH EXCEPTION OF HR IN 50S. PT STATES THAT IS HIS BASELINE. PT A&O X3, INDEPENDENTLY AMBULATING, RA 97%, NSR WITH SB, +BOWEL SOUNDS, SKIN CDI WITH NO EDEMA. PT GIVEN ASPIRIN 325 MG. PT NPO. ORDER FOR 2L NC WHICH PT REFUSES. MD AWARE. NITRO PASTE FROM ER CURRENTLY APPLIED. PAIN REPORTED /. PT WILL TAKE MORPHINE WHEN AVAILABLE. PT RESTING COMFORTABLY. CALL CRUZ IN REACH. WILL CONTINUE TO MONITOR
--- NOTE | 2016-06-16 03:19 | Admission Certification ---
Admission Certification Certification Statement - As attending physician, I certify that at the time of - admission, based on clinical presentation, severity of - symptoms, need for further diagnostic testing and - therapeutic interventions, and risk of adverse outcomes - without in-hospital treatment, in my clinical assessment, - this patient requires an acute hospital stay for a minimum - of two nights or longer. I have also considered psychsocial - factors such as support system, advanced age, financial - issues, cognitive issues, and failed out-patient treatments, - past re-admission history, safety of patient, and lack of - compliance as applicable. Specific rationale supporting this admission is: Unstable angina
[2016-06-16 04:39] LABS: ABSOLUTE BASOPHIL COUNT 0.1 /CUMM (0.0-0.2); ABSOLUTE EOSINOPHIL COUNT 0.2 /CUMM (0.0-0.7); ABSOLUTE GRANULOCYTE CT 3.5 /CUMM (1.4-6.5); ABSOLUTE MONOCYTE COUNT 0.6 /CUMM (0.10-0.60); BASOPHIL % 0.8 % (0.0-2.0); EOSINOPHIL % 2.5 % (0-5); GRANULOCYTE % 47.7 % (42.2-75.2); HEMATOCRIT 43.2 % (42-52); MEAN CORPUSCULAR HGB 30.8 PG (27.0-31.0); MEAN CORPUSCULAR HGB CONC 33.3 G/DL (33.0-37.0); MEAN CORPUSCULAR VOLUME 92.5 FL (80.0-94.0); MEAN PLATELET VOLUME 8.5 FL (7.4-10.4); PLATELET COUNT 190 /CUMM (130-400); RBC DISTRIBUTION WIDTH 13.8 % (11.5-14.5); RED BLOOD CELL CT 4.67 /CUMM (4.70-6.10); WHITE BLOOD CELL COUNT 7.3 /CUMM (4.8-10.8)
[2016-06-16 04:44] LABS: PT 27.9 SEC (9.4-12.5)
--- NOTE | 2016-06-16 07:36 | PN- Housestaff ---
ASHA MARX,ROGELIO 06/16/16 0734: Subjective Follow-up For: Chest pain Tele-Events Since Last Visit: Sinus yash 43 at 3am - 51-58bpm [id number] Subjective: I saw and examined the patient today morning He still reports left sided chest pain 3-4/10, substernal, feels heavy. He denies any shortness of breah, nasuea, vomiting. Review of Systems Constitutional: Reports: see HPI. Comments: ROS negative except the above. Objective Last 24 Hrs of Vital Signs/I&O Vital Signs Date Time Temp Pulse Resp B/P B/P Pulse O2 O2 Flow FiO2 Mean Ox Delivery Rate 06/16 0011 97.4 57 18 111/81 98 06/15 2324 97.2 57 18 110/63 98 06/15 2210 97.1 55 18 108/68 96 06/15 2100 97.4 54 15 111/74 100 Room Air Intake & Output 06/16 0800 06/16 0000 06/15 1600 Intake Total 7 Output Total 500 Balance -493 Intake, IV 7 Output, Urine 500 Patient 72.575 kg 72.575 kg Weight Weight Reported by Patient Reported by Patient Measurement Method Physical Exam General Appearance: Alert, Oriented X3, Cooperative, Mild Distress Skin: No Rashes, No Breakdown HEENT: Atraumatic, PERRLA, EOMI Neck: Supple Cardiovascular: Normal S1, Normal S2 Lungs: Clear to Auscultation, Normal Air Movement Abdomen: Normal Bowel Sounds, Soft, No Tenderness Neurological: Normal Gait, Normal Speech, Strength at 5/5 X4 Ext, Normal Tone, Sensation Intact Extremities: No Clubbing, No Cyanosis, No Edema Current Medications: Current Medications Sig/Danisha Start time Last Medication Dose Route Stop Time Status Admin Acetaminophen 650 MG Q6P PRN 06/15 2330 AC PO Acetaminophen/ 1 TAB Q6P PRN 06/15 2330 AC Hydrocodone Bitart PO Alprazolam 1 MG DAILY 06/16 1000 AC PO 06/23 0959 Aspirin 325 MG ONCE ONE 06/16 0115 DC 06/16 PO 06/16 0116 0119 Atorvastatin Calcium 80 MG 1700 06/17 1700 AC PO Clopidogrel Bisulfate 75 MG DAILY 06/16 1000 AC PO Fluticasone 2 SPRAY DAILY 06/16 1000 AC Propionate KUMAR Lisinopril 5 MG DAILY 06/16 1000 AC PO Metoprolol Tartrate 25 MG DAILY 06/16 1000 AC PO Montelukast Sodium 10 MG DAILY 06/16 1000 AC PO Morphine Sulfate 2 MG Q4P PRN 06/15 2330 AC 06/16 IV 0212 Morphine Sulfate 0 .STK-MED ONE 06/15 2250 DC .ROUTE Morphine Sulfate 4 MG ONCE ONE 06/15 2245 DC 06/15 IV 06/15 2246 2254 Multivitamins 1 TAB DAILY 06/16 1000 AC PO Nitroglycerin 1 GM Q6 06/16 0600 AC TOP Nitroglycerin 0.4 MG Q 5 MINUTES X 3 DO.. 06/15 2345 AC SL Nitroglycerin 0 .STK-MED ONE 06/15 2249 DC TOP Nitroglycerin 1 GM ONCE ONE 06/15 2245 DC 06/15 TOP 06/15 2245 2323 Nitroglycerin 0.4 MG ONCE ONE 06/15 2215 DC 06/15 SL 06/16 2215 221 Nitroglycerin 0 .STK-MED ONE 06/15 2140 DC SL Nitroglycerin 0.4 MG ONCE ONE 06/15 2129 DC 06/15 SL 06/15 2130 213 Last 24 Hrs of Lab/Jim Results Last 24 Hrs of Labs/Mics: Laboratory Tests 06/16/16 1628: Troponin I < 0.01 06/16/16 1055: Troponin I < 0.01 06/16/16 0410: Anion Gap 9, Estimated GFR > 60, BUN/Creatinine Ratio 14.3, Troponin I < 0.01, Triglycerides 324 H, Cholesterol 264 H, LDL Cholesterol, Calc 150 H, HDL Cholesterol 48, Cholesterol/HDL Ratio 5.5 H, PT 27.9 H, INR 2.68 H, CBC w Diff NO MAN DIFF REQ, RBC 4.67 L, MCV 92.5, MCH 30.8, RDW 13.8, MPV 8.5, Gran % 47.7, Lymphocytes % 40.3, Monocytes % 8.7, Eosinophils % 2.5, Basophils % 0.8, Absolute Granulocytes 3.5, Absolute Lymphocytes 3.0, Absolute Monocytes 0.6, Absolute Eosinophils 0.2, Absolute Basophils 0.1, PUBS MCHC 33.3 06/15/162129: Anion Gap 9, Estimated GFR > 60, BUN/Creatinine Ratio 12.5, Glucose 96, Calcium 8.9, Magnesium 2.0, Total Bilirubin 0.7, AST 23, ALT 48, Alkaline Phosphatase 40 , Troponin I < 0.01, Total Protein 6.5, Albumin 4.0, Globulin 2.5, Albumin/ Globulin Ratio 1.6, TSH 2.950, Free T4 0.89, PT 30.2 H, INR 2.91 H, CBC w Diff NO MAN DIFF REQ, RBC 4.73, MCV 90.5, MCH 30.7, RDW 14.2, MPV 8.5, Gran % 52.6, Lymphocytes % 33.3, Monocytes % 10.9 H, Eosinophils % 2.2, Basophils % 1.0, Absolute Granulocytes 3.5, Absolute Lymphocytes 2.2, Absolute Monocytes 0.7 H, Absolute Eosinophils 0.1, Absolute Basophils 0.1, PUBS MCHC 33.9 Assessment/Plan Assessment: Patient is a 46 YO Currently smoking male with PMH significant for CAD s/p 5 stents placement (last stent summer 2015), VFib and Vtach, cardiac arrest (april 2012), mural thrombus (On coumadin), ischaemic CVA, borderline COPD, HLD, HTN, diverticulosis, renal stones, GERD presented with progressively worsening chest pain over the past 2 weeks. Vitals on admission, BP: 111/74, RR: 15, Pulse: 54, afebrile and O2 sat of 100% on RA. Labs pertinent for WBC: 6,600, H&H: 14.5/42.8, platelet count of 197,000. Serum chemistries pertinent for Na: 137, K: 4.2, HCO3: 22, A, BUN: 10, Cr: 0.8, magnesium: 2.0, LFTs' unremarkable with an AST/ALT: 23/48, alk phosp: 40, troponin <0.01, INR: 2.91. EKG revealed normal sinus rhythm, heart rate of 66, OK interval of 164, Q waves in 1 and aVL unchanged from prior, poor R-wave progression, no ST-T changes Last echocardiogram in 04/11 showed apex hypokinetic. Borderline normal left ventricular ejection fraction estimated at 50-55% He was admitted last night to tele floor in anticipation of transfering to another hospital for possible cath today. He was kept NPO overnight. Plan Unstable angina Intially thought of transfering to another hospital - however given his INR of 2.6 this am along with no clinical emergency at this point considered to wait till INR drifts down. In addition the next 2 consequetive days are weekend, so we probably plan for cath on sunday. Once INR comes down to <2 we will start patient on IV heparin. Meanwhile we continue other medicatons including aspirin 81mg, plavix 75mg, atorvastatin 80mg, lisinopril 5mg, Lopressor 25mg. Pain control with morphine and nitroglycerine paste (if blood pressure tolerates). Other chronic conditions Anxiety - continue alprazolam 1mg daily Allergies - Fluticasone nasal spray Coumadin on hold DVT prophylaxis INR - 2.6 Code Status Full Code Problem List: 1. Unstable angina 2. Dyslipidemia 3. Diverticulitis of colon 4. CVA Pain Ratin Pain Location: chest pain Pain Goal: Pain 4 or less Pain Plan: tylenol' Morphine Nitroglycerine paste Tomorrow's Labs & Rationales: bep to monitor lytes and renal function PT to monitor INR Consulting Request: Consulting Specialty: Cardiology SHELIA HARDWICK MD 06/16/16 1135: Attending MD Review Statement Attending Statement Attending MD Statement: examined this patient, discuss w/resident/PA/PSYCHIATRIC TECHNICIAN, agreed w/resident/PA/PSYCHIATRIC TECHNICIAN, reviewed EMR data (avail) Attending Assessment/Plan: 46M PMH CAD s/p 5 PCI in LAD, VFib, V-tach at rest in April of 2012, hx of mural thrombus (on Coumadin), ischemic CVA, boderline COPD, current smoker, diverticulitis with history of obstruction, renal stones, HTN, HLD, GERD admitted for 1 week of intermittent chest pain, occuring at first with exertion but now at rest, 6-8/10, left sided, radiates to arm, similar presentation to prior WI's. No EKG changes, troponin negative. Today reports 6/10 chest pain that is constant, also left upper tooth pain from a cracked molar. Plan - Continue on telemetry - Serial EKG/troponin - Cardiology consult - No heparin at this time per cardiology - Hold Coumadin for now - Continue NPO - Continue ASA, Metoprolol, SLN - Morphine PRN for pain - DVT PPx
[2016-06-16 07:43] VITALS: BP 100/80
[2016-06-16 08:22] VITALS: BP 100/80
--- NOTE | 2016-06-16 14:11 | ECHOCARDIOGRAM REPORT ---
SCOTT OWEN Age: 46 : 1970 Gender: M Exam Date: 06/16/2016 08:41 Exam Location: 1 [address] Ht (in): 68 Wt (lb): 160 BSA: 1.87 BP: 111 / 81 Ordering Physician: HERMAN GARAY MD Referring Physician: HERMAN GARAY MD Technologist: Matheus Aleman [facility] Room Number: 187-1 Indications: Chest Pain Rhythm: Sinus Technical Quality: Fair FINDINGS Left Ventricle Normal size left ventricle. Hypokinetic septum. Mccamey akinetic. Mildly abnormal left ventricular ejection fraction estimated at 40- 45%. Right Ventricle Right ventricle at upper limits of normal. Right Atrium Normal right atrial size. Left Atrium Mild left atrial dilatation. Mitral Valve Mitral valve thickened. Trace to mild mitral regurgitation. Aortic Valve Trileaflet aortic valve. Focal thickening of the aortic valve cusps. No aortic stenosis. No aortic regurgitation. Tricuspid Valve Tricuspid valve not well visualized, grossly normal. Trace to mild tricuspid regurgitation. Pulmonic Valve Pulmonic valve not well visualized, grossly normal. Pericardium No pericardial effusion. Great Vessels Normal size aortic root and proximal ascending aorta. CONCLUSIONS 1. Mild aortic sclerosis is present with no valvular stenosis or insufficiency. 2. Mitral leaflet thickening is present with minimal to mild mitral insufficiency and mild left atrial enlargement. 3. There is no pericardial fluid present. 4. The left ventricular chamber size is normal. THere is marked hypokinesia of the mid to distal septum and anteroapical segments with akinesia of the apex and an ejection fraction of approximately 40-45%. 5. The right heart chambers are upper normal in size with minimal to mild tricuspid insufficiency. The RV systolic pressure was not accurately assessed. 6. A false tendon is present in the mid left ventricle. Zay Onofre M.D. (Electronically Signed) Final Date: 16 June 2016 14:11 MEASUREMENTS (Male / Female) Normal Values 2D ECHO LV Diastolic Diameter PLAX 4.7 cm 4.2 - 5.9 / 3.9 - 5.3 cm LV Systolic Diameter PLAX 3.5 cm 2.1 - 4.0 cm LV Fractional Shortening PLAX 25.5 % 25 - 46 % LV Ejection Fraction 2D Teich 50.3 % IVS Diastolic Thickness 1.0 cm LVPW Diastolic Thickness 1.1 cm LV Relative Wall Thickness 0.4 RV Internal Dim ED PLAX 3.4 cm 1.9 - 3.8 cm LVOT Diameter 2.0 cm Aortic Root Diameter 3.1 cm LA Systolic Diameter LX 3.1 cm 3.0 - 4.0 / 2.7 - 3.8 cm LA Volume 33.0 cm 18 - 58 / 22 - 52 cm Ascending Aorta Diameter 3.2 cm DOPPLER AV Peak Velocity 121.0 cm/s AV Peak Gradient 5.9 mmHg AV Mean Velocity 81.8 cm/s AV Mean Gradient 3.0 mmHg AV Velocity Time Integral 28.7 cm LVOT Peak Velocity 98.5 cm/s LVOT Peak Gradient 3.9 mmHg LVOT Mean Velocity 69.1 cm/s LVOT Mean Gradient 2.0 mmHg LVOT Velocity Time Integral 25.0 cm LVOT Stroke Volume 78.5 cm AV Area Cont Eq vti 2.7 cm AV Area Cont Eq pk 2.6 cm MV Peak Velocity 70.3 cm/s MV Peak Gradient 2.0 mmHg MV Mean Velocity 42.8 cm/s MV Mean Gradient 1.0 mmHg Mitral E Point Velocity 62.2 cm/s Mitral A Point Velocity 45.9 cm/s Mitral E to A Ratio 1.4 MV PHT Velocity 74.7 cm/s MV Deceleration Morrison 274.0 cm/s MV Pressure Half Time 81.8 ms MV Area PHT 2.7 cm MV Deceleration Time 363.0 ms PV Peak Velocity 101.0 cm/s PV Peak Gradient 4.1 mmHg PV Mean Velocity 71.7 cm/s PV Mean Gradient 2.0 mmHg PV Velocity Time Integral 26.7 cm LV E' Lateral Velocity 8.3 cm/s Mitral E to LV E' Lateral Ratio 7.5 LV E' Septal Velocity 10.1 cm/s Mitral E to LV E' Septal Ratio 6.2
[2016-06-16 15:51] VITALS: BP 98/58
--- NOTE | 2016-06-16 17:55 | Cons- Cardiology ---
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 His supervising editor news reel is Dr. Onofre. His most recent stent was one year ago. He presents with complaint of recent chest discomfort which has been present for the past few weeks. He describes a dull pressure in the center of his chest which has been constant for hours, intermittently over the past few weeks. He also notes an intermittent sharp pain in the chest lasting for up to 10 seconds per episode, and occurring multiple times per day. The dull discomfort is often brought on by exertion. No recent shortness of breath. No palpitations. No diaphoresis. The chest discomfort feels similar to his prior anginal symptoms. He most recently saw Dr. Onofre 6 weeks ago, and he was found to be stable at that time. Allergies/Medications Allergies: Coded Allergies: Iodinated Contrast Media - Oral and (IODINATED CONTRAST MEDIA - IV DYE) (GI UPSET, VOMITING 05/03/15) Home Med List: Acetaminophen (Tylenol Extra Strength) 500 MG TABLET 1 TAB PO PRN PAIN ( Reported) Alprazolam 1 MG TABLET 1 TAB PO DAILY ANXIETY (Reported) Atorvastatin Calcium 80 MG TABLET 80 MG PO 1700 cholestrol Clopidogrel Bisulfate (Clopidogrel) 75 MG TABLET 1 TAB PO DAILY BLOOD THINNER (Reported) Fluticasone Propionate 50 MCG/ACTUATION SPRAY.SUSP 2 SPRAY NASB DAILY ALLERGIES (Reported) Lisinopril 5 MG TABLET 1 TAB PO DAILY BP (Reported) Metoprolol Tartrate 25 MG TABLET 1 TAB PO DAILY HEART/BP (Reported) Montelukast Sodium 10 MG TABLET 1 TAB PO DAILY ALLERGIES (Reported) Nitroglycerin 0.4 MG TAB.SUBL 1 TAB SL AD PRN CHEST PAIN (Reported) 1st sign of attack; may repeat every 5 minutes until relief; if pain persists after 3 tablets in 15 minutes, prompt medical att Oxycodone HCl/Acetaminophen (Percocet 5-325 MG Tablet) 5 MG-325 MG TABLET 1 TAB PO Q6 PRN PAIN (Reported) Rosuvastatin Calcium (Crestor) 20 MG TABLET 1 TAB PO DAILY CHOLESTEROL ( Reported) Warfarin Sodium (Coumadin) 7.5 MG TABLET 1 TAB PO DAILY BLOOD THINNER ( Reported) Current Medications: Current Medications Sig/Danisha Start time Last Medication Dose Route Stop Time Status Admin Acetaminophen 650 MG Q6P PRN 06/15 2330 AC PO Acetaminophen/ 1 TAB Q6P PRN 06/15 2330 DC 06/16 Hydrocodone Bitart PO 1555 Alprazolam 1 MG DAILY 06/16 1000 AC PO 06/23 0959 Aspirin 325 MG ONCE ONE 06/16 0115 DC 06/16 PO 06/16 0116 0119 Atorvastatin Calcium 80 MG 1700 06/17 1700 AC PO Clopidogrel Bisulfate 75 MG DAILY 06/16 1000 AC 06/16 PO 0921 Fluticasone 2 SPRAY DAILY 06/16 1000 AC 06/16 Propionate KUMAR 0921 Lisinopril 5 MG DAILY 06/16 1000 AC 06/16 PO 0921 Metoprolol Tartrate 25 MG DAILY 06/16 1000 AC 06/16 PO 1621 Montelukast Sodium 10 MG DAILY 06/16 1000 AC 06/16 PO 0922 Morphine Sulfate 4 MG Q4P PRN 06/16 1000 AC 06/16 IV 1658 Morphine Sulfate 2 MG Q4P PRN 06/15 2330 DC 06/16 IV 0756 Morphine Sulfate 0 .STK-MED ONE 06/15 2250 DC .ROUTE Morphine Sulfate 4 MG ONCE ONE 06/15 2245 DC 06/15 IV 06/15 2246 2254 Multivitamins 1 TAB DAILY 06/16 1000 AC 06/16 PO 0922 Nitroglycerin 1 GM Q6 06/16 0600 AC TOP Nitroglycerin 0.4 MG Q 5 MINUTES X 3 DO.. 06/15 2345 AC SL Nitroglycerin 0 .STK-MED ONE 06/15 2249 DC TOP Nitroglycerin 1 GM ONCE ONE 06/15 2245 DC 06/15 TOP 06/15 2246 2323 Nitroglycerin 0.4 MG ONCE ONE 06/15 2215 DC 06/15 SL 06/15 221 2210 Nitroglycerin 0 .STK-MED ONE 06/15 2140 WV SL Nitroglycerin 0.4 MG ONCE ONE 06/15 2130 DC 06/15 SL 06/158 Review of Systems Review of Systems: No rash. No tremor. No melena. No fever. No chills. All other systems were reviewed, and were noted to be negative. Past History Travel History Traveled to [place] past 21 day No Medical History Blood Transfusion Hx: Yes Neurological: CVA, seizure EENT: MENIERE'S DISEASE Cardiovascular: IN X4 Respiratory: COPD Gastrointestinal: diverticulitis, "BOWEL BLOCKAGE" Hepatic: NONE Renal: KIDNEY STONES Musculoskeletal: NECK FRACTURE Psychiatric: NONE Endocrine: NONE Blood Disorders: NONE BELL STAFF/Reproductive: NONE Surgical History Surgical History: hernia repair-umbilical, 4 ANGIOPLASTY 3 STENT PLACEMENTS BOWEL BLOCKAGE REPAIR Family History Relations & Conditions If Any: MOTHER FH: heart disease FATHER FH: myocardial infarction Psychosocial History Where Do You Live? Home Who Do You Live With? self Services at Home: None Primary Language: Bruneian Smoking Status: Current Everyday Smoker ETOH Use: denies use Illicit Drug Use: denies illicit drug use Functional Ability ADLs Independent: dressing, eating, toileting, bathing. Ambulation: independent IADLs Independent: shopping, housework, finances, food prep, telephone, transportation , medication admin. Exam & Diagnostic Data Vital Signs and I&O Vital Signs Date Time Temp Pulse Resp B/P B/P Pulse O2 O2 Flow FiO2 Mean Ox Delivery Rate 06/16 1621 68 98/60 06/16 1551 98.7 64 18 98/58 97 Room Air 06/16 0922 52 100/80 06/16 0822 97.6 53 16 100/80 06/16 0743 97.6 53 16 100/80 96 Room Air 06/16 0011 97.4 57 18 111/81 98 06/15 2324 97.2 57 18 110/63 98 06/15 2210 97.1 55 18 108/68 96 06/15 2100 97.4 54 15 111/74 100 Room Air Intake & Output 06/16 1600 06/16 0800 06/16 0000 06/15 1600 06/15 0800 06/15 0000 Intake Total 320 7 Output Total 500 500 Balance -180 -493 Intake, IV 20 7 Intake, Oral 300 Output, Urine 500 500 Patient 160 lb 160 lb Weight Weight Reported by Patient Reported by Patient Measurement Method Physical Exam: Gen: The patient is in no acute distress HEENT: Normal nose, ears, and oropharynx. Pupils equal bilaterally. Conjunctiva normal. Neck: Supple with no JVD, no masses, and no thyromegaly Lungs: Clear to auscultation with normal respiratory effort Heart: RRR, S1, S2, 1/6 systolic murmur. No peripheral edema, 2+ pulses in the lower extremities bilaterally Abdomen: Soft, nontender, no masses. No hepatomegaly. No splenomegaly Extremities: No clubbing or cyanosis. Normal muscle strength in the upper and lower extremities Skin: Normal skin turgor with no skin ulcers or lesions noted. Neuro: Cranial nerves intact. Sensation intact Psych: Alert and oriented 3 with appropriate affect Labs/Jim Results: Laboratory Tests 06/16 06/16 06/16 1628 1055 0410 Chemistry Sodium (137 - 145 mmol/L) 135 L Potassium (3.5 - 5.1 mmol/L) 4.0 Chloride (98 - 107 mmol/L) 104 Carbon Dioxide (22 - 30 mmol/L) 22 Anion Gap (5 - 16) 9 BUN (9 - 20 mg/dL) 10 Creatinine (0.7 - 1.2 mg/dL) 0.7 Estimated GFR (>60 ml/min) > 60 BUN/Creatinine Ratio (7 - 25 %) 14.3 Troponin I (<0.11 ng/ml) Pending < 0.01 < 0.01 Triglycerides (<150 mg/dL) 324 H Cholesterol (< 200 MG/DL) 264 H LDL Cholesterol, Calc (65 - 129 mg/dL) 150 H HDL Cholesterol (40 - 60 mg/dL) 48 Cholesterol/HDL Ratio (0.00 - 4.88 %) 5.5 H Coagulation PT (9.4 - 12.5 SEC) 27.9 H INR (0.90 - 1.17) 2.68 H Hematology CBC w Diff NO MAN DIFF REQ WBC (4.8 - 10.8 /CUMM) 7.3 RBC (4.70 - 6.10 /CUMM) 4.67 L Hgb (14.0 - 18.0 G/DL) 14.4 Hct (42 - 52 %) 43.2 MCV (80.0 - 94.0 FL) 92.5 MCH (27.0 - 31.0 PG) 30.8 RDW (11.5 - 14.5 %) 13.8 Plt Count (130 - 400 /CUMM) 190 MPV (7.4 - 10.4 FL) 8.5 Gran % (42.2 - 75.2 %) 47.7 Lymphocytes % (20.5 - 51.1 %) 40.3 Monocytes % (1.7 - 9.3 %) 8.7 Eosinophils % (0 - 5 %) 2.5 Basophils % (0.0 - 2.0 %) 0.8 Absolute Granulocytes (1.4 - 6.5 /CUMM) 3.5 Absolute Lymphocytes (1.2 - 3.4 /CUMM) 3.0 Absolute Monocytes (0.10 - 0.60 /CUMM) 0.6 Absolute Eosinophils (0.0 - 0.7 /CUMM) 0.2 Absolute Basophils (0.0 - 0.2 /CUMM) 0.1 PUBS MCHC (33.0 - 37.0 G/DL) 33.3 06/15 2130 Chemistry Sodium (137 - 145 mmol/L) 135 L Potassium (3.5 - 5.1 mmol/L) 4.2 Chloride (98 - 107 mmol/L) 104 Carbon Dioxide (22 - 30 mmol/L) 22 Anion Gap (5 - 16) 9 BUN (9 - 20 mg/dL) 10 Creatinine (0.7 - 1.2 mg/dL) 0.8 Estimated GFR (>60 ml/min) > 60 BUN/Creatinine Ratio (7 - 25 %) 12.5 Glucose (65 - 99 mg/dL) 96 Calcium (8.4 - 10.2 mg/dL) 8.9 Magnesium (1.6 - 2.3 mg/dL) 2.0 Total Bilirubin (0.2 - 1.3 mg/dL) 0.7 AST (17 - 59 U/L) 23 ALT (21 - 72 U/L) 48 Alkaline Phosphatase (< 127 U/L) 40 Troponin I (<0.11 ng/ml) < 0.01 Total Protein (6.3 - 8.2 g/dL) 6.5 Albumin (3.5 - 5.0 g/dL) 4.0 Globulin (1.9 - 4.2 gm/dL) 2.5 Albumin/Globulin Ratio (1.1 - 2.2 %) 1.6 TSH (0.270 - 4.200 uIU/mL) 2.950 Free T4 (0.64 - 1.79 ng/dL) 0.89 Coagulation PT (9.4 - 12.5 SEC) 30.2 H INR (0.90 - 1.17) 2.91 H Hematology CBC w Diff NO MAN DIFF REQ WBC (4.8 - 10.8 /CUMM) 6.6 RBC (4.70 - 6.10 /CUMM) 4.73 Hgb (14.0 - 18.0 G/DL) 14.5 Hct (42 - 52 %) 42.8 MCV (80.0 - 94.0 FL) 90.5 MCH (27.0 - 31.0 PG) 30.7 RDW (11.5 - 14.5 %) 14.2 Plt Count (130 - 400 /CUMM) 197 MPV (7.4 - 10.4 FL) 8.5 Gran % (42.2 - 75.2 %) 52.6 Lymphocytes % (20.5 - 51.1 %) 33.3 Monocytes % (1.7 - 9.3 %) 10.9 H Eosinophils % (0 - 5 %) 2.2 Basophils % (0.0 - 2.0 %) 1.0 Absolute Granulocytes (1.4 - 6.5 /CUMM) 3.5 Absolute Lymphocytes (1.2 - 3.4 /CUMM) 2.2 Absolute Monocytes (0.10 - 0.60 /CUMM) 0.7 H Absolute Eosinophils (0.0 - 0.7 /CUMM) 0.1 Absolute Basophils (0.0 - 0.2 /CUMM) 0.1 PUBS MCHC (33.0 - 37.0 G/DL) 33.9 Diagnostic Data EKG Results EKG tracing is independently reviewed, and reveals normal sinus rhythm at 68, anterior infarct age undetermined CXR Results No convincing evidence for an acute process. Other Results Nuclear Stress test 08/25/15: A stable appearing moderately sized fixed perfusion abnormality is present involving the apex and adjacent apical anterior and apical inferior golden, with associated severe hypokinesis. No regions of reversible ischemia are present. There has not been a significant change since 02/04/2014. Assessment/Plan Assessment/Plan The patient is a 46-year-old male with history of CAD, status post multiple stents, ventricular fibrillation arrest, 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 EKG shows new T-wave abnormality is compared to his prior EKG. Troponin levels are negative 3. He is now pain-free. He is anticoagulated on warfarin given his history of CVA and mural thrombus. Plan: * Monitor on telemetry * Hold warfarin for possible cardiac catheterization * Start IV heparin per protocol once INR is less than 2.0 * Echocardiogram * Continue atorvastatin * Continue aspirin and Plavix * Continue metoprolol * Nitroglycerin paste. * Sublingual nitroglycerin when necessary * Either cardiac catheterization or nuclear stress test will be performed Sunday depending on the clinical course over the weekend. Consult Acknowledgment - Thank you for your consult request.
--- NOTE | 2016-06-16 23:07 | NUR ---
2200 LATE NURSING ENTRY: PATIENT C/O LCW PAIN 5/10 AND TOOTH ACHE 7/10, BP 90/60, HR 55, SPO2 98% RA. REPORTED TO MD HOLT AND PATIENT MEDICATED WITH MORPHINE PER EMAR ORDER.
[2016-06-17 00:23] VITALS: BP 90/60
--- NOTE | 2016-06-17 01:00 | NUR ---
SENIOR CYBER SECURITY ANALYST IRA INFORMED MYSELF/RN RE. PT'S ABDULLAHI DOWN LOW 40'S. INFORMED DR. HOLT RE. PT'S LOW HR, ASYMPOMATIC & NO CP. NO ORDERS. CONT TO MONITOR.
[2016-06-17 07:30] VITALS: BP 88/60
[2016-06-17 08:02] VITALS: BP 90/70
[2016-06-17 08:25] LABS: PT 16.2 SEC (9.4-12.5)
--- NOTE | 2016-06-17 08:55 | PN- Housestaff ---
Subjective Follow-up For: Chest pain Complaints: no complaints Tele-Events Since Last Visit: sb, hr 40-53, pvc, hr was lowest at 40 at midnight, bradycardia alarm was rest then Subjective: patient followed up by me today, he offered no complaints, was comfortable, vitals stable other than mentioned above, no overnight issues. Review of Systems Constitutional: Reports: no symptoms. Objective Last 24 Hrs of Vital Signs/I&O Vital Signs Date Time Temp Pulse Resp B/P B/P Pulse O2 O2 Flow FiO2 Mean Ox Delivery Rate 06/17 1754 63 100/70 06/17 1637 98.7 64 20 102/64 97 Room Air 06/17 1033 60 98/78 06/17 0802 77 90/70 06/17 0730 97.5 55 14 88/60 96 Room Air 06/17 0023 98.0 48 20 90/60 96 Room Air 06/17 0000 Room Air Intake & Output 06/17 1600 06/17 0800 06/17 0000 Intake Total 480 240 440 Output Total 2 Balance 480 238 440 Intake, IV 0 40 Intake, Oral 480 240 400 Number 0 0 Bowel Movements Output, Urine 2 Physical Exam General Appearance: Alert, Oriented X3, Cooperative, No Acute Distress Other Physical Findings: Skin: No Rashes, No Breakdown HEENT: Atraumatic, PERRLA, EOMI Neck: Supple Cardiovascular: Normal S1, Normal S2 Lungs: Clear to Auscultation, Normal Air Movement Abdomen: Normal Bowel Sounds, Soft, No Tenderness Neurological: Normal Gait, Normal Speech, Strength at 5/5 X4 Ext, Normal Tone, Sensation Intact Current Medications: Current Medications Sig/Danisha Start time Last Medication Dose Route Stop Time Status Admin Acetaminophen 650 MG Q6P PRN 06/15 2330 AC PO Alprazolam 1 MG DAILY PRN 06/17 1444 AC 06/17 PO 06/24 1443 2232 Alprazolam 1 MG DAILY 06/16 1000 DC PO 06/23 0959 Aspirin 81 MG DAILY 06/16 1831 AC 06/17 PO 1013 Atorvastatin Calcium 80 MG 1700 06/17 1700 AC 06/17 PO 1644 Bisacodyl 5 MG DAILY PRN 06/17 2300 UNVr PO Clopidogrel Bisulfate 75 MG DAILY 06/16 1000 AC 06/17 PO 1013 Fluticasone 2 SPRAY DAILY 06/16 1000 AC 06/17 Propionate KUMAR 1013 Heparin Sodium 4,350 UNIT ONCE ONE 06/17 2134 DC 06/17 (Porcine) IV 06/18 2135 2229 Heparin Sodium/ 25,000 UNIT Q24H 06/17 1215 AC 06/17 Dextrose IV 2236 Dextrose/Water 500 ML Lisinopril 5 MG DAILY 06/16 1000 AC 06/16 PO 0921 Metoprolol Tartrate 25 MG DAILY 06/16 1000 AC 06/16 PO 1621 Montelukast Sodium 10 MG DAILY 06/16 1000 AC 06/17 PO 1013 Morphine Sulfate 4 MG Q4P PRN 06/16 1000 AC 06/17 IV 1958 Multivitamins 1 TAB DAILY 06/16 1000 AC 06/17 PO 1013 Nitroglycerin 1 GM Q6 06/16 0600 AC TOP Nitroglycerin 0.4 MG Q 5 MINUTES X 3 DO.. 06/15 2345 AC SL Polyethylene Glycol 17 GM DAILY PRN 06/17 2300 UNVr PO Senna 187 MG AT BEDTIME 06/18 2200 UNVr PO Last 24 Hrs of Lab/Jim Results Last 24 Hrs of Labs/Mics: Laboratory Tests 06/17/165: APTT 43 H 06/17/16 1800: APTT Cancelled 06/17/16 1426: Urine Opiates Screen > 4000.00 H, Methadone Screen < 40, Barbiturate Screen < 60, Ur Phencyclidine Scrn < 6.00, Amphetamines Screen < 100, U Benzodiazepines Scrn < 85, Urine Cocaine Screen < 50, Urine Cannabis Screen > 80.00 H 06/17/16 0620: Anion Gap 10, Estimated GFR > 60, BUN/Creatinine Ratio 17.5, PT 16.2 H, INR 1.55 H Assessment/Plan Assessment: Patient is a 46 YO Currently smoking male with PMH significant for CAD s/p 5 stents placement (last stent summer 2015), VFib and Vtach, cardiac arrest (april 2012), mural thrombus (On coumadin), ischaemic CVA, borderline COPD, HLD, HTN, diverticulosis, renal stones, GERD presented with progressively worsening chest pain over the past 2 weeks. He was initially admitted to the tele floor in anticipation of transfering to another hospital for possible catheterization, yesterday but is now planned as follows: Plan Unstable angina Intially thought of transfering to another hospital - however given his INR of 2.6 this am along with no clinical emergency at this point considered to wait till INR drifts down. Nyla was on Warfarin for mural thrombus, whichw as held and the INR has dropped to below 2, after which per cardiology suggestion, IV heparin has been initiated today. Meanwhile we continue other medicatons including aspirin 81mg, plavix 75mg, atorvastatin 80mg , lisinopril 5mg, Lopressor 25mg. Pain control with morphine and nitroglycerine paste (if blood pressure tolerates). Plan for catheterize on Sunday. Other chronic conditions Anxiety - continue alprazolam 1mg daily Allergies - Fluticasone nasal spray Coumadin on hold DVT prophylaxis IV Heparin Diet: Heart healthy Code Status Full Code Problem List: 1. Unstable angina 2. Dyslipidemia Pain Ratin Pain Location: - Pain Goal: Pain 4 or less Pain Plan: prn as ordered Tomorrow's Labs & Rationales: INR, BEP Consulting Request: Consulting Specialty: Cardiology
[2016-06-17 10:33] VITALS: BP 98/78
--- NOTE | 2016-06-17 10:43 | NUR ---
PT IS A+OX4. DENIES PAIN. C/O OF LIGHTHEADEDNESS AT TIMES. BP AT 0800 WAS 90/70 MANUALLY HR 77. METOPROLOL AND LISINOPRIL HELD. DR.VIVEK DAVIS WAS UPDATED. RECHEK OF BP AT 1030 WAS 98/[address]ALAN CHAN FROM CARDIOLOGY IN TO SEE PT. HE WAS UPDATED ON INR 1.55. COUMADIN ON HOLD DUE TO CATH VS. NUC ON SUNDAY. PER CARDIOLOGY HEPARIN DRIP TO BE STARTED TO KEEP INR >2. COVERING PROVIDER DR.VIVEK DAVIS WAS UPDATED. SAFETY MAINTAINED.
--- NOTE | 2016-06-17 12:18 | PN- Cardiology ---
Subjective Subjective: The patient is awake, alert States having continued, constant substernal discomfort; however improved The events of the last 24 hours as well as telemetry were reviewed. Review of Systems: The review of systems is positive for chest pains, palpitations nor lightheadedness. The remainder of the 14 point review of systems is noncontributory with the exception of above. Objective Vital Signs and I&Os Vital Signs Date Time Temp Pulse Resp B/P B/P Pulse O2 O2 Flow FiO2 Mean Ox Delivery Rate 06/17 1033 60 98/78 06/17 0802 77 90/70 06/17 0730 97.5 55 14 88/60 96 Room Air 06/17 0023 98.0 48 20 90/60 96 Room Air 06/17 0000 Room Air 06/16 1621 68 98/60 06/16 1551 98.7 64 18 98/58 97 Room Air Intake & Output 06/17 1600 06/17 0800 06/17 0000 06/16 1600 06/16 0800 06/16 0000 Intake Total 240 440 320 7 Output Total 2 500 500 Balance 238 440 -180 -493 Intake, IV 0 40 20 7 Intake, Oral 240 400 300 Number 0 0 Bowel Movements Output, Urine 2 500 500 Patient 160 lb 160 lb Weight Weight Reported by Patient Reported by Patient Measurement Method Physical Exam: General: Nontoxic, no apparent distress. HEENT: Sclera and conjunctiva within normal limits, without xanthelasmas. Neck: Carotids 2+ without bruits. Respiratory: Clear to auscultation, air movement is good, without accessory respiratory muscle use. Heart: Regular rate and rhythm, without murmurs, without JVD. Abdomen: Soft, nontender, no masses, normoactive bowel sounds. Extremities: Without clubbing, cyanosis, without edema. Neuro: Nonfocal exam, strength, 5 out of 5 Skin: Within normal limits without lesions. Psych: Mood and affect: Normal Current Medications: Current Medications Sig/Danisha Start time Last Medication Dose Route Stop Time Status Admin Acetaminophen 650 MG Q6P PRN 06/15 2330 AC PO Acetaminophen/ 1 TAB Q6P PRN 06/15 2330 DC 06/16 Hydrocodone Bitart PO 1555 Alprazolam 1 MG DAILY 06/16 1000 AC PO 06/23 0959 Aspirin 81 MG DAILY 06/16 1831 AC 06/17 PO 1013 Atorvastatin Calcium 80 MG 1700 06/17 1700 AC PO Clopidogrel Bisulfate 75 MG DAILY 06/16 1000 AC 06/17 PO 1013 Fluticasone 2 SPRAY DAILY 06/16 1000 AC 06/17 Propionate KUMAR 1013 Heparin Sodium/ 25,000 UNIT Q24H 06/17 1215 UNVr Dextrose IV Dextrose/Water 500 ML Lisinopril 5 MG DAILY 06/16 1000 AC 06/16 PO 0921 Metoprolol Tartrate 25 MG DAILY 06/16 1000 AC 06/16 PO 1621 Montelukast Sodium 10 MG DAILY 06/16 1000 AC 06/17 PO 1013 Morphine Sulfate 4 MG Q4P PRN 06/16 1000 AC 06/17 IV 0425 Multivitamins 1 TAB DAILY 06/16 1000 AC 06/17 PO 1013 Nitroglycerin 1 GM Q6 06/16 0600 AC TOP Nitroglycerin 0.4 MG Q 5 MINUTES X 3 DO.. 06/15 2345 AC SL Results Last 48 Hrs of Labs/Mics: Laboratory Tests 06/17/16 0620: Anion Gap 10, Estimated GFR > 60, BUN/Creatinine Ratio 17.5, PT 16.2 H, INR 1.55 H 06/16/16 1628: Troponin I < 0.01 06/16/16 1055: Troponin I < 0.01 06/16/16 0410: Anion Gap 9, Estimated GFR > 60, BUN/Creatinine Ratio 14.3, Troponin I < 0.01, Triglycerides 324 H, Cholesterol 264 H, LDL Cholesterol, Calc 150 H, HDL Cholesterol 48, Cholesterol/HDL Ratio 5.5 H, PT 27.9 H, INR 2.68 H, CBC w Diff NO MAN DIFF REQ, RBC 4.67 L, MCV 92.5, MCH 30.8, RDW 13.8, MPV 8.5, Gran % 47.7, Lymphocytes % 40.3, Monocytes % 8.7, Eosinophils % 2.5, Basophils % 0.8, Absolute Granulocytes 3.5, Absolute Lymphocytes 3.0, Absolute Monocytes 0.6, Absolute Eosinophils 0.2, Absolute Basophils 0.1, PUBS MCHC 33.3 06/15/16 2130: Anion Gap 9, Estimated GFR > 60, BUN/Creatinine Ratio 12.5, Glucose 96, Calcium 8.9, Magnesium 2.0, Total Bilirubin 0.7, AST 23, ALT 48, Alkaline Phosphatase 40 , Troponin I < 0.01, Total Protein 6.5, Albumin 4.0, Globulin 2.5, Albumin/ Globulin Ratio 1.6, TSH 2.950, Free T4 0.89, PT 30.2 H, INR 2.91 H, CBC w Diff NO MAN DIFF REQ, RBC 4.73, MCV 90.5, MCH 30.7, RDW 14.2, MPV 8.5, Gran % 52.6, Lymphocytes % 33.3, Monocytes % 10.9 H, Eosinophils % 2.2, Basophils % 1.0, Absolute Granulocytes 3.5, Absolute Lymphocytes 2.2, Absolute Monocytes 0.7 H, Absolute Eosinophils 0.1, Absolute Basophils 0.1, PUBS MCHC 33.9 Assessment/Plan Assessment/Plan The patient is a 46-year-old male with history of CAD, status post multiple stents, ventricular fibrillation arrest, 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 EKG shows new T-wave abnormality is compared to his prior EKG. Troponin levels are negative 3. He is anticoagulated on warfarin given his history of CVA and mural thrombus. Chest pain: Given the patient's significant cardiac history as well as statement that his symptoms are similar to those experienced previously (albeit not as intense), and invasive strategy would be preferred. He will likely undergo cardiac catheterization on [id number]. Coumadin was held and heparin will be started when his INR is below 1.8. We will continue the remainder of his regimen including aspirin and Plavix. Further recommendations made based on results of cardiac catheterization Continue telemetry? Yes
[2016-06-17 16:37] VITALS: BP 102/64
--- NOTE | 2016-06-17 17:23 | NUR ---
PT REMAINS STABLE. MORPHINE GIVEN FOR CHEST AND LEFT UPPER TOOTH DISCOMFORT. HEPARIN DRIP INITIATED AT 12UNITS/KG/HR PER ORDERS
[2016-06-17 17:54] VITALS: BP 100/70
--- NOTE | 2016-06-17 18:14 | PN- Att Addend ---
Attending MD Review Statement Attending Statement Attending MD Statement: examined this patient, discuss w/resident/PA/LEADERSHIP DEVELOPMENT MANAGER, agreed w/resident/PA/LEADERSHIP DEVELOPMENT MANAGER, reviewed EMR data (avail), discussed w/nursing Attending Assessment/Plan: Laboratory Tests 06/17/16 1800: APTT Cancelled 06/17/16 1426: Urine Opiates Screen > 4000.00 H, Methadone Screen < 40, Barbiturate Screen < 60, Ur Phencyclidine Scrn < 6.00, Amphetamines Screen < 100, U Benzodiazepines Scrn < 85, Urine Cocaine Screen < 50, Urine Cannabis Screen > 80.00 H 06/17/16 0620: Anion Gap 10, Estimated GFR > 60, BUN/Creatinine Ratio 17.5, PT 16.2 H, INR 1.55 H Vital Signs Date Time Temp Pulse Resp B/P B/P Pulse O2 O2 Flow FiO2 Mean Ox Delivery Rate 06/17 1754 63 100/70 06/17 1637 98.7 64 20 102/64 97 Room Air 06/17 1033 60 98/78 06/17 0802 77 90/70 06/17 0730 97.5 55 14 88/60 96 Room Air 06/17 0023 98.0 48 20 90/60 96 Room Air 06/17 0000 Room Air . Patient seen and examined at bedside. Discussed with patient the care plan. Patient has coronary artery disease with history of prior stents and last one was 1 year ago. Patient also has COPD and his current active smoker. Patient counseled about quitting smoking and it does not look that he is very interested in quitting. Patient continues to have chest discomfort. Discussed with cardiology the care plan and the plan is to transfer patient for cardiac catheterization on Sunday. We will hold the warfarin for now and continue with IV heparin drip. Patient is on warfarin secondary to mural thrombus.
[2016-06-17 21:18] LABS: PTT 43 SEC (25-37)
[2016-06-18 00:06] VITALS: BP 100/70
[2016-06-18 04:20] LABS: PTT > 120 SEC (25-37)
--- NOTE | 2016-06-18 07:59 | PN- Housestaff ---
See Addendum Subjective Follow-up For: unstable angina Tele-Events Since Last Visit: NSR/Sinus yash, couplets, PVC's 50-65bpm Subjective: I saw the patient today morning. He is very upset and frustated about his drug test. Very worried that his drug screen is in the records. Denies any medical marijuana intake. She is taking marijuana on street and really upset that it is in his records now. Feels that it is not going to effect his heart and nothing to do with his health condition. Review of Systems Constitutional: Reports: see HPI. Comments: ROS negative except the above. Objective Last 24 Hrs of Vital Signs/I&O Vital Signs Date Time Temp Pulse Resp B/P B/P Pulse O2 O2 Flow FiO2 Mean Ox Delivery Rate 06/18 0006 98.2 63 20 100/70 96 Room Air 06/17 1754 63 100/70 06/17 1637 98.7 64 20 102/64 97 Room Air 06/17 1033 60 98/78 06/17 0802 77 90/70 Intake & Output 06/18 0800 06/18 0000 06/17 1600 Intake Total 80 480 Output Total Balance 80 480 Intake, IV 80 Intake, Oral 480 Physical Exam General Appearance: Alert, Oriented X3, Cooperative, Moderate Distress Skin: No Rashes, No Breakdown HEENT: Atraumatic Other Physical Findings: Unable to examine as patient is very upset and not cooperative. Current Medications: Current Medications Sig/Danisha Start time Last Medication Dose Route Stop Time Status Admin Acetaminophen 650 MG Q6P PRN 06/15 2330 AC PO Alprazolam 1 MG DAILY PRN 06/17 1444 AC 06/17 PO 06/24 1443 2232 Aspirin 81 MG DAILY 06/16 1831 AC 06/18 PO 0944 Atorvastatin Calcium 80 MG 1700 06/17 1700 AC 06/17 PO 1644 Bisacodyl 5 MG DAILY NEEDED PRN 06/17 2300 AC 06/18 PO 0946 Clopidogrel Bisulfate 75 MG DAILY 06/16 1000 AC 06/18 PO 0944 Fluticasone 2 SPRAY DAILY 06/16 1000 AC 06/18 Propionate KUMAR 0944 Heparin Sodium 4,350 UNIT ONCE ONE 06/175 DC 06/17 (Porcine) IV 06/18 2135 2229 Heparin Sodium/ 25,000 UNIT Q24H 06/17 1215 AC 06/18 Dextrose IV 1231 Dextrose/Water 500 ML Lisinopril 5 MG DAILY 06/16 1000 AC 06/18 PO 0944 Metoprolol Tartrate 25 MG DAILY 06/16 1000 AC 06/18 PO 0944 Montelukast Sodium 10 MG DAILY 06/16 1000 AC 06/18 PO 0944 Morphine Sulfate 4 MG Q4P PRN 06/16 1000 AC 06/18 IV 1233 Multivitamins 1 TAB DAILY 06/16 1000 AC 06/18 PO 0944 Nitroglycerin 1 GM Q6 06/16 0600 AC TOP Nitroglycerin 0.4 MG Q 5 MINUTES X 3 DO.. 06/15 2345 AC SL Polyethylene Glycol 17 GM DAILY NEEDED PRN 06/17 2300 AC PO Senna 187 MG AT BEDTIME 06/17 2330 AC 06/18 PO 0022 Last 24 Hrs of Lab/Jim Results Last 24 Hrs of Labs/Mics: Laboratory Tests 06/18/16 1130: APTT 45 H 06/18/16 0330: APTT > 120 *H 06/17/165: APTT 43 H 06/17/16 1800: APTT Cancelled Lines/Diet/Fluids Lines: peripheral lines Assessment/Plan Assessment: Patient is a 46 YO Currently smoking male with PMH significant for CAD s/p 5 stents placement (last stent summer 2015), VFib and Vtach, cardiac arrest (april 2012), mural thrombus (On coumadin), ischaemic CVA, borderline COPD, HLD, HTN, diverticulosis, renal stones, GERD presented with progressively worsening chest pain over the past 2 weeks. He was initially admitted to the tele floor in anticipation of transfering to another hospital for possible catheterization, yesterday but is now planned as follows: Plan Unstable angina Intially thought of transfering to another hospital - however given his INR of 2.6 this am along with no clinical emergency at this point considered to wait till INR drifts down. Nyla was on Warfarin for mural thrombus, whichw as held and the INR has dropped to below 2, after which per cardiology suggestion, IV heparin has been initiated yesterday. Meanwhile we continue other medicatons including aspirin 81mg, plavix 75mg, atorvastatin 80mg , lisinopril 5mg, Lopressor 25mg. Pain control with morphine and nitroglycerine paste (if blood pressure tolerates). Plan for catheterize on Sunday. NPO from midnight today. Other chronic conditions Anxiety - continue alprazolam 1mg daily Allergies - Fluticasone nasal spray Coumadin on hold in anticipation of cath. DVT prophylaxis IV Heparin Diet: Heart healthy Code Status Full Code Problem List: 1. Unstable angina 2. Chest pain 3. Myocardial infarction Pain Ratin Pain Location: chest pain Pain Goal: Pain 4 or less Pain Plan: Morphine Nitroglycerine Tomorrow's Labs & Rationales: cbc to monitor platelet count - patient is on IV heparin BEP to monitor electrolytes and renal function on the day of cath. Consulting Request: Consulting Specialty: Cardiology
[2016-06-18 08:07] VITALS: BP 96/80
[2016-06-18 12:18] LABS: PTT 45 SEC (25-37)
--- NOTE | 2016-06-18 14:29 | PN- Cardiology ---
Subjective Subjective: The patient is awake, alert Continues to have atypical chest discomfort intermittent throughout the day The events of the last 24 hours as well as telemetry were reviewed. Review of Systems: The review of systems is negative for chest pains, palpitations nor lightheadedness. The remainder of the 14 point review of systems is noncontributory with the exception of above. Objective Vital Signs and I&Os Vital Signs Date Time Temp Pulse Resp B/P B/P Pulse O2 O2 Flow FiO2 Mean Ox Delivery Rate 06/18 0944 130/80 06/18 0944 130/80 06/18 0807 97.5 54 14 96/80 96 Room Air 06/18 0006 98.2 63 20 100/70 96 Room Air 06/17 1754 63 100/70 06/17 1637 98.7 64 20 102/64 97 Room Air Intake & Output 06/18 1600 06/18 0800 06/18 0000 06/17 1600 06/17 0800 06/17 0000 Intake Total 360 80 480 240 440 Output Total 500 2 Balance -140 80 480 238 440 Intake, IV 160 80 0 40 Intake, Oral 200 480 240 400 Number 0 0 Bowel Movements Output, Urine 500 2 Physical Exam: General: Nontoxic, no apparent distress. HEENT: Sclera and conjunctiva within normal limits, without xanthelasmas. Neck: Carotids 2+ without bruits. Respiratory: Clear to auscultation, air movement is good, without accessory respiratory muscle use. Heart: Regular rate and rhythm, without murmurs, without JVD. Abdomen: Soft, nontender, no masses, normoactive bowel sounds. Extremities: Without clubbing, cyanosis, without edema. Neuro: Nonfocal exam, strength, 5 out of 5 Skin: Within normal limits without lesions. Psych: Mood and affect: Normal Current Medications: Current Medications Sig/Danisha Start time Last Medication Dose Route Stop Time Status Admin Acetaminophen 650 MG Q6P PRN 06/15 2330 AC PO Alprazolam 1 MG DAILY PRN 06/17 1444 AC 06/17 PO 06/24 1443 2232 Alprazolam 1 MG DAILY 06/16 1000 DC PO 06/23 0959 Aspirin 81 MG DAILY 06/16 1831 AC 06/18 PO 0944 Atorvastatin Calcium 80 MG 1700 06/17 1700 AC 06/17 PO 1644 Bisacodyl 5 MG DAILY NEEDED PRN 06/17 2300 AC 06/18 PO 0946 Clopidogrel Bisulfate 75 MG DAILY 06/16 1000 AC 06/18 PO 0944 Fluticasone 2 SPRAY DAILY 06/16 1000 AC 06/18 Propionate KUMAR 0944 Heparin Sodium 4,350 UNIT ONCE ONE 06/175 DC 06/17 (Porcine) IV 06/18 2135 2229 Heparin Sodium/ 25,000 UNIT Q24H 06/17 1215 AC 06/18 Dextrose IV 1231 Dextrose/Water 500 ML Lisinopril 5 MG DAILY 06/16 1000 AC 06/18 PO 0944 Metoprolol Tartrate 25 MG DAILY 06/16 1000 AC 06/18 PO 0944 Montelukast Sodium 10 MG DAILY 06/16 1000 AC 06/18 PO 0944 Morphine Sulfate 4 MG Q4P PRN 06/16 1000 AC 06/18 IV 1233 Multivitamins 1 TAB DAILY 06/16 1000 AC 06/18 PO 0944 Nitroglycerin 1 GM Q6 06/16 0600 AC TOP Nitroglycerin 0.4 MG Q 5 MINUTES X 3 DO.. 06/15 2345 AC SL Polyethylene Glycol 17 GM DAILY NEEDED PRN 06/17 2300 AC PO Senna 187 MG AT BEDTIME 06/17 2330 AC 06/18 PO 0022 Results Last 48 Hrs of Labs/Mics: Laboratory Tests 06/18/16 1130: APTT 45 H 06/18/16 0330: APTT > 120 *H 06/17/16 2025: APTT 43 H 06/17/16 1800: APTT Cancelled 06/17/16 1426: Urine Opiates Screen > 4000.00 H, Methadone Screen < 40, Barbiturate Screen < 60, Ur Phencyclidine Scrn < 6.00, Amphetamines Screen < 100, U Benzodiazepines Scrn < 85, Urine Cocaine Screen < 50, Urine Cannabis Screen > 80.00 H 06/17/16 0620: Anion Gap 10, Estimated GFR > 60, BUN/Creatinine Ratio 17.5, PT 16.2 H, INR 1.55 H 06/16/16 1628: Troponin I < 0.01 Assessment/Plan Assessment/Plan The patient is a 46-year-old male with history of CAD, status post multiple stents, ventricular fibrillation arrest, 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 EKG shows new T-wave abnormality is compared to his prior EKG. Troponin levels are negative 3. He is anticoagulated on warfarin given his history of CVA and mural thrombus. Chest pain: Given the patient's significant cardiac history as well as statement that his symptoms are similar to those experienced previously (albeit not as intense), and invasive strategy would be preferred. He will likely undergo cardiac catheterization on [id number]. Coumadin was held and heparin started. We will continue the remainder of his regimen including aspirin and Plavix. Further recommendations made based on results of cardiac catheterization Continue telemetry? Yes
[2016-06-18 15:50] VITALS: BP 104/60
[2016-06-18 20:27] LABS: PTT 56 SEC (25-37)
--- NOTE | 2016-06-18 23:47 | NUR ---
ALERT AND ORIENTED X 3. VITAL SIGNS STABLE. + PULSES. ON ROOM AIR. STEADY GAIT. MEDICATION GIVEN FOR DISCOMFORT. SKIN C/D/I. HEPARIN GTT RUNNING PATIENT RESTING AT THIS TIME. WILL CONTINUE TO MONITOR
[2016-06-19 00:12] VITALS: BP 118/76
[2016-06-19 00:13] VITALS: BP 97/70
--- NOTE | 2016-06-19 07:02 | PN- Housestaff ---
See Addendum Subjective Follow-up For: Unstable angina Possible cath today Tele-Events Since Last Visit: sinus yash 47 - 52bpm Subjective: I saw the patient today morning He is sleeping today morning, not able to wake up despite repeated attempts. Review of Systems Constitutional: Reports: see HPI. Objective Last 24 Hrs of Vital Signs/I&O Vital Signs Date Time Temp Pulse Resp B/P B/P Pulse O2 O2 Flow FiO2 Mean Ox Delivery Rate 06/19 0013 97.9 50 20 97/70 96 06/18 1550 98.1 55 20 104/60 95 06/18 0944 130/80 06/18 0944 130/80 06/18 0807 97.5 54 14 96/80 96 Room Air Intake & Output 06/19 0800 06/19 0000 06/18 1600 Intake Total 140 450 Output Total Balance 140 450 Intake, IV 140 Intake, Oral 450 Physical Exam General Appearance: Alert Current Medications: Current Medications Sig/Danisha Start time Last Medication Dose Route Stop Time Status Admin Acetaminophen 650 MG Q6P PRN 06/15 2330 AC PO Alprazolam 1 MG DAILY PRN 06/17 1444 AC 06/18 PO 06/24 1443 2244 Aspirin 81 MG DAILY 06/16 1831 AC 06/18 PO 0944 Atorvastatin Calcium 80 MG 1700 06/17 1700 AC 06/18 PO 1702 Bisacodyl 5 MG DAILY NEEDED PRN 06/17 2300 AC 06/18 PO 0946 Clopidogrel Bisulfate 75 MG DAILY 06/16 1000 AC 06/18 PO 0944 Fluticasone 2 SPRAY DAILY 06/16 1000 AC 06/18 Propionate KUMAR 0944 Heparin Sodium/ 25,000 UNIT Q24H 06/17 1215 AC 06/18 Dextrose IV 1844 Dextrose/Water 500 ML Lisinopril 5 MG DAILY 06/16 1000 AC 06/18 PO 0944 Metoprolol Tartrate 25 MG DAILY 06/16 1000 AC 06/18 PO 0944 Montelukast Sodium 10 MG DAILY 06/16 1000 AC 06/18 PO 0944 Morphine Sulfate 4 MG Q4P PRN 06/16 1000 AC 06/18 IV 2244 Multivitamins 1 TAB DAILY 06/16 1000 AC 06/18 PO 0944 Nitroglycerin 1 GM Q6 06/16 0600 AC 06/18 TOP 1831 Nitroglycerin 0.4 MG Q 5 MINUTES X 3 DO.. 06/15 2345 AC SL Polyethylene Glycol 17 GM DAILY NEEDED PRN 06/17 2300 AC PO Senna 187 MG AT BEDTIME 06/17 2330 AC 06/18 PO 2244 Last 24 Hrs of Lab/Jim Results Last 24 Hrs of Labs/Mics: Laboratory Tests 06/19/16 1830: APTT Cancelled 06/19/16 0618: PT Cancelled, INR Cancelled 06/19/16 0618: Anion Gap 9, Estimated GFR > 60, BUN/Creatinine Ratio 15.0, PT 10.7, INR 1.02, APTT 57 H, CBC w Diff NO MAN DIFF REQ, RBC 4.74, MCV 91.8, MCH 30.8, RDW 13.8, MPV 8.9, Gran % 49.7, Lymphocytes % 37.5, Monocytes % 9.2, Eosinophils % 2.9, Basophils % 0.7, Absolute Granulocytes 3.3, Absolute Lymphocytes 2.5, Absolute Monocytes 0.6, Absolute Eosinophils 0.2, Absolute Basophils 0, PUBS MCHC 33.6 Lines/Diet/Fluids Lines: peripheral lines Assessment/Plan Assessment: Patient is a 46 YO Currently smoking male with PMH significant for CAD s/p 5 stents placement (last stent summer 2015), VFib and Vtach, cardiac arrest (april 2012), mural thrombus (On coumadin), ischaemic CVA, borderline COPD, HLD, HTN, diverticulosis, renal stones, GERD presented with progressively worsening chest pain over the past 2 weeks. He was initially admitted to the tele floor in anticipation of transfering to another hospital for possible catheterization, yesterday but is now planned as follows: Plan Unstable angina On the day of admission thought of transfering to another hospital - however given his INR of 2.6 this am along with no clinical emergency at this point considered to wait till INR drifts down. Patinet was on Warfarin for mural thrombus, whichw as held and the INR has dropped to below 2, after which per cardiology suggestion, IV heparin has been initiated yesterday. Meanwhile we continue other medicatons including aspirin 81mg, plavix 75mg, atorvastatin 80mg, lisinopril 5mg, Lopressor 25mg. Pain control with morphine and nitroglycerine paste (if blood pressure tolerates). Transfered to [facility] for cardiac catheterization today with . Other chronic conditions Anxiety - continue alprazolam 1mg daily Allergies - Fluticasone nasal spray Coumadin on hold in anticipation of cath. DVT prophylaxis IV Heparin Diet: Heart healthy Code Status Full Code Problem List: 1. Myocardial infarction 2. Unstable angina Pain Ratin Pain Location: chest pain Pain Goal: Pain 4 or less Pain Plan: tylenol morphine Tomorrow's Labs & Rationales: none Consulting Request: Consulting Specialty: Cardiology
[2016-06-19 08:15] LABS: ABSOLUTE BASOPHIL COUNT 0 /CUMM (0.0-0.2); ABSOLUTE EOSINOPHIL COUNT 0.2 /CUMM (0.0-0.7); ABSOLUTE GRANULOCYTE CT 3.3 /CUMM (1.4-6.5); ABSOLUTE LYMPH COUNT 2.5 /CUMM (1.2-3.4); ABSOLUTE MONOCYTE COUNT 0.6 /CUMM (0.10-0.60); BASOPHIL % 0.7 % (0.0-2.0); EOSINOPHIL % 2.9 % (0-5); GRANULOCYTE % 49.7 % (42.2-75.2); HEMATOCRIT 43.5 % (42-52); MEAN CORPUSCULAR HGB 30.8 PG (27.0-31.0); MEAN CORPUSCULAR HGB CONC 33.6 G/DL (33.0-37.0); MEAN CORPUSCULAR VOLUME 91.8 FL (80.0-94.0); MEAN PLATELET VOLUME 8.9 FL (7.4-10.4); PLATELET COUNT 197 /CUMM (130-400); RBC DISTRIBUTION WIDTH 13.8 % (11.5-14.5); RED BLOOD CELL CT 4.74 /CUMM (4.70-6.10); WHITE BLOOD CELL COUNT 6.7 /CUMM (4.8-10.8)
[2016-06-19 08:27] LABS: PT 10.7 SEC (9.4-12.5); PTT 57 SEC (25-37)
[2016-06-19 08:43] VITALS: BP 99/71
--- NOTE | 2016-06-19 08:57 | PN- Cardiology ---
Subjective Subjective: The patient has continued to have intermittent dull substernal chest discomfort through the weekend. No shortness of breath. No palpitations. No diaphoresis. No nausea or vomiting. Objective Vital Signs and I&Os Vital Signs Date Time Temp Pulse Resp B/P B/P Pulse O2 O2 Flow FiO2 Mean Ox Delivery Rate 06/19 0843 97.9 63 18 99/71 96 Room Air 06/19 0013 97.9 50 20 97/70 96 06/18 1550 98.1 55 20 104/60 95 06/18 0944 130/80 06/18 0944 130/80 Intake & Output 06/19 1600 06/19 0800 06/19 0000 06/18 1600 06/18 0800 06/18 0000 Intake Total 140 450 360 80 Output Total 500 Balance 140 450 -140 80 Intake, IV 140 160 80 Intake, Oral 450 200 Output, Urine 500 Physical Exam: Gen: NAD HEENT: normal Lungs: clear to auscultation, normal resp. effort Heart: RRR, S1, S2, no murmurs Abdomen: Soft, nontender, no masses Extremities: No clubbing, cyanosis, or edema. Neuro: Alert and oriented x 3, cranial nerves intact Current Medications: Current Medications Sig/Danisha Start time Last Medication Dose Route Stop Time Status Admin Acetaminophen 650 MG Q6P PRN 06/15 2330 AC PO Alprazolam 1 MG DAILY PRN 06/17 1444 AC 06/18 PO 06/24 1443 2244 Aspirin 81 MG DAILY 06/16 1831 AC 06/18 PO 0944 Atorvastatin Calcium 80 MG 1700 06/17 1700 AC 06/18 PO 1702 Bisacodyl 5 MG DAILY NEEDED PRN 06/17 2300 AC 06/18 PO 0946 Clopidogrel Bisulfate 75 MG DAILY 06/16 1000 AC 06/18 PO 0944 Fluticasone 2 SPRAY DAILY 06/16 1000 AC 06/18 Propionate KUMAR 0944 Heparin Sodium/ 25,000 UNIT Q24H 06/17 1215 AC 06/18 Dextrose IV 1844 Dextrose/Water 500 ML Lisinopril 5 MG DAILY 06/16 1000 AC 06/18 PO 0944 Metoprolol Tartrate 25 MG DAILY 06/16 1000 AC 06/18 PO 0944 Montelukast Sodium 10 MG DAILY 06/16 1000 AC 06/18 PO 0944 Morphine Sulfate 4 MG Q4P PRN 06/16 1000 AC 06/18 IV 2244 Multivitamins 1 TAB DAILY 06/16 1000 AC 06/18 PO 0944 Nitroglycerin 1 GM Q6 06/16 0600 AC 06/18 TOP 1831 Nitroglycerin 0.4 MG Q 5 MINUTES X 3 DO.. 06/15 2345 AC SL Polyethylene Glycol 17 GM DAILY NEEDED PRN 06/17 2300 AC PO Senna 187 MG AT BEDTIME 06/17 2330 AC 06/18 PO 2244 Results Last 48 Hrs of Labs/Mics: Laboratory Tests 06/19/16 0618: PT Cancelled, INR Cancelled 06/19/16 0618: Anion Gap 9, Estimated GFR > 60, BUN/Creatinine Ratio 15.0, PT 10.7, INR 1.02, APTT 57 H, CBC w Diff NO MAN DIFF REQ, RBC 4.74, MCV 91.8, MCH 30.8, RDW 13.8, MPV 8.9, Gran % 49.7, Lymphocytes % 37.5, Monocytes % 9.2, Eosinophils % 2.9, Basophils % 0.7, Absolute Granulocytes 3.3, Absolute Lymphocytes 2.5, Absolute Monocytes 0.6, Absolute Eosinophils 0.2, Absolute Basophils 0, PUBS MCHC 33.6 06/18/16 1840: APTT 56 H 06/18/16 1130: APTT 45 H 06/18/16 0330: APTT > 120 *H 06/17/16 2025: APTT 43 H 06/17/16 1800: APTT Cancelled 06/17/16 1426: Urine Opiates Screen > 4000.00 H, Methadone Screen < 40, Barbiturate Screen < 60, Ur Phencyclidine Scrn < 6.00, Amphetamines Screen < 100, U Benzodiazepines Scrn < 85, Urine Cocaine Screen < 50, Urine Cannabis Screen > 80.00 H Recent Imaging Studies: Echocardiogram 06/16/16: 1. Mild aortic sclerosis is present with no valvular stenosis or insufficiency. 2. Mitral leaflet thickening is present with minimal to mild mitral insufficiency and mild left atrial enlargement. 3. There is no pericardial fluid present. 4. The left ventricular chamber size is normal. THere is marked hypokinesia of the mid to distal septum and anteroapical segments with akinesia of the apex and an ejection fraction of approximately 40-45%. 5. The right heart chambers are upper normal in size with minimal to mild tricuspid insufficiency. The RV systolic pressure was not accurately assessed. 6. A false tendon is present in the mid left ventricle. Assessment/Plan Assessment/Plan Assessment: 1. CAD, status post multiple stents 2. Anticoagulated for history of TIA secondary to left ventricular thrombus 3. Unstable angina with new EKG changes Plan: * Warfarin on hold * Continue IV heparin * Transfer to [facility] for cardiac catheterization today with Dr. Dobson Continue telemetry? Yes
[2016-06-19 09:56] VITALS: BP 102/70
[2016-06-19] MEDS ORDERED: HEPARIN-1/25000 UNI1 IV (10:41)
[2016-06-19] MEDS ORDERED: ASPIRIN81 M4 PO (10:44)
== END 2016-06-19 11:20 | disposition short-term general hospital (02) | DRG 198 ==
LOC: ERH 20:26 → ERHI 22:42 → 1NO 22:42 → EDBEDREQ 23:17 → ENRESERV 23:37 → 1NO 06-16 00:41 → ENPENDDIS 06-19 10:44 → 1NO 06-19 11:20
PROVIDERS: Emergency Medicine; Internal Medicine; Internal Medicine Infectious Disease; ADMIT Internal Medicine
DX: I25.110 Atherosclerotic heart disease of native coronary artery with unstable angina pectoris (principal); E78.5 Hyperlipidemia, unspecified; K21.9 Gastro-esophageal reflux disease without esophagitis; I10 Essential (primary) hypertension; J44.9 Chronic obstructive pulmonary disease, unspecified; I25.2 Old myocardial infarction; H81.09 Meniere's disease, unspecified ear; F41.9 Anxiety disorder, unspecified; F17.210 Nicotine dependence, cigarettes, uncomplicated; Z86.73 Personal history of transient ischemic attack (TIA), and cerebral infarction without residual deficits; Z95.5 Presence of coronary angioplasty implant and graft
CPT/HCPCS: 1NP; ERO; 36415; 80307; 82436; 93005; 93010; 93306; 96374; J1644; J2270; J3490; J7060